=== PATIENT | male | born 2005 | race African-American/Black ===

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

== ENCOUNTER 2024-09-12 12:43 | Emergency (ER) | payer OTHER, SELFPAY ==
--- OUTSIDE RECORDS SUMMARY | 2024-09-12 12:45 | XMS_ITS | Clinical Summary ---
Author Organization [facility] [employer] Address [address] [place] [address] Care Team Providers Care Battery Container Finishing Hand Name Role Phone Massiel Martinez MD Primary Care Provider [phone] Source Comments [facility],non-owned Affiliates and Associated Physician Practices is amultiple site organization consisting of ambulatory clinics and hospital sitesin [place], [place], [place] and [place]. This disclosure is being madepursuant to the Care Everywhere program and may not contain all information available regarding this patient. Last updated 18.[facility] [employer] Allergies Active Allergy Reactions Criticality Noted Date Comments Cephalexin Medium 07/07/2011 hives Medications * This document contains information received from the source organization and may not represent a complete record from that organization. * Be aware that medications may not be up to date on this document. Alwaysverify current medications with the patient. ARIPiprazole (ABILIFY) 10 MG tabletIndicatio ns:Mixed Bipolar Affective Disorder Take 1 (one) tablet by mouth once daily Reasons: MIXED BIPOLAR AFFECTIVE DISORDER 30 tablet 1 Active Additional Information Patient not taking.Reported on 02/23/2021 Active Problems Problem Noted Date Diagnosed Date Severe mood dysregulation disorder 10/14/2020 Ingestion of unknown medication 10/14/2020 Overdose by acetaminophen, i ntentional self-harm, initial encounter 10/13/2020 DMDD (disruptive mood dysregulation disorder) Acute stress reaction 11/07/2018 MDD (major depressive disord er), recurrent episode, moderate 07/27/2018 Episode of recurrent major depressive disorder 0 05/17/2018 Resolved Problems Problem Noted Date Diagnosed Date Resolved Date Suicidal ideation 2018 05/21/2018 Immunizations Immunization Administration Dates Next Due INFLUENZA VACCINE, QUADR. 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 SPECIALIST Gender Identity Not on file Sexual Orientation Not on file Last Filed Vital Signs Vital Sign Reading Time Taken Comments Blood Pressure 131/93 03/22/2024 8:06 AM OPERATING ROOM SPECIALIST Pulse 95 03/22/2024 8:06 AM OPERATING ROOM SPECIALIST Temperature 37.1 C (98.7 F) 03/22/2024 5:25 AM OPERATING ROOM SPECIALIST Respiratory Rate 22 03/22/2024 8:06 AM OPERATING ROOM SPECIALIST Oxygen Saturation 99% 03/22/2024 5:25 AM OPERATING ROOM SPECIALIST Inhaled Oxygen Concentration - - Weight 99.8 kg (220 lb) 03/22/2024 5:25 AM OPERATING ROOM SPECIALIST Height 177.8 cm (5' 10 ) 03/22/2024 5:25 AM OPERATING ROOM SPECIALIST Body Mass Index 31.57 03/22/2024 5:25 AM OPERATING ROOM SPECIALIST Plan of Treatment Health Maintenance Due Date Last Done Comments HIV SCREENING 2019 HPV VACCINE (1 - Male 3-dose series) 2019 MENINGOCOCCAL (Group B) VACCINE SHARED DECISION-MAKING (1 of 2 - Standard) 2020 HEPATITIS C SCREENING 05/14/2022 DTAP/TDAP/TD VACCINES (1 - Tdap) 2023 HEPATITIS B VACCINE (1 of 3 - 19+ 3-dose series) 2023 COVID-19 VACCINE (3 - 2023-2 5 season) 2024 09/06/2020, 08/16/2020 DEPRESSION SCREENING 05/07/2024 INFLUENZA VACCINE (Season Ended) 2025 02/24/2021, 02/06/2018, 01/24/2017 ZOSTER VACCINE (1 of 2) 2054 HIB VACCINE Aged Out No longer eligi ble based on patient's age to complete this topic MENINGOCOCCAL GROUPS A/C/Y/W VACCINE Aged Out No longer eligible b ased on patient's age to complete this topic PNEUMOCOCCAL VACCINE Aged Out No long er eligible based on patient's age to complete this topic Insurance [facility] Advance Directives * Full Code (Latest Code Status on File) Date Activated Date Inactivated Comments 02/22/2021 11:38 PM 02/24/2021 8:35 PM * Full Code Date Activated Date Inactivated Comments 10/14/2020 5:20 AM 10/18/2020 9:03 PM * Full Code Date Activated Date Inactivated Comments 05/17/2018 3:15 AM 05/21/2018 6:04 PM Care Teams Battery Container Finishing Hand Relationship Specialty Start Date End Date Massiel Martinez MD PCP - General Pediatrics 08/09/18
--- OUTSIDE RECORDS SUMMARY | 2024-09-12 12:45 | XMS_ITS | Clinical Summary ---
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 20 tablet 03/03/20 23 Active albuterol HFA (PROVENTIL HFA,VENTOLIN HFA,PROAIR HFA) 90 mcg/actuation inhaler Inhale 2 puffs every 4 (four) hours as needed for shortness of breath or wheezing 1 each 08/22/19 25 026 Active albuterol (PROVENTIL,ARTHUR TOLIN) 2.5 mg /3 mL (0.083 %) nebulizer solution Take 2.5 mg by nebulization every 4 (four) hours as needed for wheezing or shortness of breath 025 Discontinued Active Problems Problem Noted Date Diagnosed Date Other chest pain 07/08/2020 Premature ventricular contractions (PVCs) (VPCs) 06/30/2020 Closed fracture of lower end of right ulna 07/09 Snoring Excessive daytime sleepiness Encounters Date Type Department Care Team Description 08/21/2024 3:31 AM CDT - 08/21/2024 7:56 AM CDT Emergency [facility] Emergency Department [address] [place] [address] Luis Armando Greco MD Chest pain, unspecified type (Primary Dx); Shortness of breath; Acute left-sided low back pain without sciatica Discharge Disposition: Discharge to home or self care from Last 3 Months Medical History Medical History Date Comments Asthma Social History Tobacco Use Types Packs/Day Years Used Date Smoking Tobacco: Never Smokeless Tobacco: Never Alcohol Use Standard Drinks/Week Comments Never 0 (1 standard drink = 0.6 oz pur e alcohol) Personal Safety Answer Date Recorded Have you ever been in or are you currently in a harmful physical or emotional relationship or is someone making you feel afraid or unsafe? 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 OPERATOR Sexual Orientation Not on file Obstetrics History Last Filed Vital Signs Vital Sign Reading Time Taken Comments Blood Pressure 128/63 08/21/2024 7:00 AM CDT Pulse 55 08/21/2024 7:00 AM CDT Temperature 36.7 C (98 F) 08/21/2024 1:38 AM CDT Respiratory Rate 9 08/21/2024 7:00 AM CDT Oxygen Saturation 100% 08/21/2024 7:00 AM CDT Inhaled Oxygen Concentration - - Weight 99.8 kg (220 lb) 08/21/2024 1:38 AM CDT Height 172.7 cm (5' 8 ) 08/21/2024 1:38 AM CDT Body Mass Index 33.45 08/21/2024 1:38 AM CDT Plan of Treatment Health Maintenance Due Date Last Done Comments Depression Screening 2004 Hepatitis C Screening 2004 Meningococcal B Vaccine (1 of 2 - Standard) 2020 Regular Well Visit/Exam 18-64 2022 Covid-19 Vaccine ( season) 2024 09/06/2020, 08/16/2020 Influenza Vaccine (Season Ended) 2025 02/24/2021, 02/06/2018, 01/24/2017, Additional history exists DTaP/Tdap/Td Vaccine (7 - Td or Tdap) 11/16/2025 11/17/2015, 05/21/2008, 07/25/2006, Additional history exists Hepatitis B Screening Completed 2004 , 2004, 2004, Additional history exists Pneumococcal vaccine <65 Completed 006, 2004, 2004, Additional history exists Varicella Vaccines Completed 05/21/2008, 05/19/2005 Meningococcal Vaccine Aged Out 11/17/2015 No theodore fiona eligible based on patient's age to complete this topic HPV Vaccines Completed 05/30/2016, 01/05, 11/17/2015 Procedures Procedure Name Priority Date/Time Associated Diagnosis Comments XR CHEST PA LATERAL 2 VIEWS ED 08/21/2024 2:15 AM CDT EGFR STAT 08/21/2024 1:58 AM CDT DIFFERENTIAL AUTO STAT 08/21/2024 1:5 8 AM CDT COMPREHENSIVE METABOLIC PANEL STAT 08/21/2024 1:58 AM CDT CBC WITH AUTO DIFFERENTIAL STAT 08/21/2024 1:58 AM CDT ECG 12-LEAD STAT 08/21/2024 1:50 AM CDT from Last 3 Months Results * XR Chest PA Lateral 2 Views (08/21/2024 2:15 AM CDT) Anatomical Region Laterality Modality Body, Chest N/A Computed Radiogr aphy 08/21/2024 2:19 AM CDT Narrative 08/21/2024 2:19 AM CDT EXAM DESCRIPTION: XR CHEST PA LATERAL 2 VIEWS REASON FOR STUDY: chest pain C/o SOB and Left mid to lower back pain and chest pain Tonight. Pt states this has been going on and off for about 1 Month. Pt states the breathing has been having issues on and off for past 2 weeks. Asthma TECHNIQUE: Frontal and lateral radiographic views of the chest acquired. COMPARISON: None. FINDINGS: LUNGS/PLEURA: No focal consolidation or pneumothorax. No pleural effusion. HEART/MEDIASTINUM: Cardiac silhouette is normal. Remaining mediastinal silhouettes are unremarkable. HARDWARE/LINES/TUBES: None. BONES: No acute findings. IMPRESSION: No acute cardiopulmonary abnormality. THIS IS AN ELECTRONICALLY VERIFIED FINAL REPORT 08/21/2024 2:19 AM - Electronically signed by Tonia Sullivan M.D. SN: SN Report ID: [id number] Reading Location: [id number] Procedure Note Tonia Sullivan MD - 08/21/2024 EXAM DESCRIPTION: XR CHEST PA LATERAL 2 VIEWS REASON FOR STUDY: chest pain C/o SOB and Left mid to lower back pain and chest pain Tonight. Pt states this has been going on and off for about 1 Month. Pt states thebreathing has been having issues on and off for past 2 weeks. Asthma TECHNIQUE: Frontal and lateral radiographic views of the chest acquired. COMPARISON: None. FINDINGS: LUNGS/PLEURA: No focal consolidation or pneumothorax. No pleuraleffusion. HEART/MEDIASTINUM: Cardiac silhouette is normal. Remaining mediastinal silhouettes are unremarkable. HARDWARE/LINES/TUBES: None. BONES: No acute findings. IMPRESSION: No acute cardiopulmonary abnormality. THIS IS AN ELECTRONICALLY VERIFIED FINAL REPORT 08/21/2024 2:19 AM - Electronically signed by Tonia Sullivan M.D. SN: Report ID: [id number] Reading Location: [id number] us Luis Armando Greco MD IMG XR PROCEDURES F inal Result * eGFR (08/21/2024 1:58 AM CDT) eGFR 85 >=60 mL/min/1. 73 m2 Comment: Interpretive Data Reference Interval Normal >/= 90 mL/min/1.73m2 Mildly decreased* 60 - 89 mL/min/1.73m2 Mildly to moderately decreased 45 - 59 mL/min/1.73m2 Moderately to severely decreased 30 - 44 mL/min/1.73m2 Severely decreased 15 - 29 mL/min/1.73m2 Kidney Failure < 15 mL/min/1.73m2 *Relative to young adult level Estimated glomerular filtration rate is determined by the 2020 CKD-EPI equation recommended by the National Kidney Foundation (A Unifying Approach to GFR Estimation: Recommendations of the NKF-ASK Task Force on Reassessing the Inclusion of Race in Diagnosing Kidney Disease, JASN 2020). The CKD-EPI equation should not be used for patients with unstable renal function and has not been validated in children and those over 70. Current interpretive data was last reviewed 2021. Blood 08/21/2024 1:58 AM CDT 08/21/2024 2:04 AM CDT us Luis Armando Greco MD LAB BLOOD ORDERABLE S Final Result [facility] ([facility]) 1 [facility] Department [place] [address] * Differential, auto (08/21/2024 1:58 AM CDT) Neutrophil abs 4.38 1.50 - 6.50 K/cumm Imm gran abs 0.02 0.00 - 0.10 K/cumm [facility] ([place]) Lymphocyte abs 2.27 0.80 - 3.30 K/cumm [facility] ([place]) Monocyte abs 0.70 0.20 - 0.80 K/cumm [facility] ([place]) Eosinophil abs 0.23 0.00 - 0.50 K/cumm [facility] ([place]) Basophil abs 0.02 0.00 - 0.10 K/cumm [facility] ([place]) Neutrophil pct 57.4 % [facility] ([place]) Comment: Interpretive Data Percent cell count reference ranges are not reported, since discordance with absolute values may lead to misinterpretation of CBC data. Current Interpretive Data was last revised on 2017. Imm gran pct 0.3 % [facility] ([place]) Comment: Interpretive Data Percent cell count reference ranges are not reported, since discordance with absolute values may lead to misinterpretation of CBC data. Current Interpretive Data was last revised on 2017. Lymphocyte pct 29.8 % [facility] ([place]) Comment: Interpretive Data Percent cell count reference ranges are not reported, since discordance with absolute values may lead to misinterpretation of CBC data. Current Interpretive Data was last revised on 2017. Monocyte pct 9.2 % [facility] ([place]) Comment: Interpretive Data Percent cell count reference ranges are not reported, since discordance with absolute values may lead to misinterpretation of CBC data. Current Interpretive Data was last revised on 2017. Eosinophil pct 3.0 % [facility] ([place]) Comment: Interpretive Data Percent cell count reference ranges are not reported, since discordance with absolute values may lead to misinterpretation of CBC data. Current Interpretive Data was last revised on 2017. Basophil pct 0.3 % [facility] ([place]) Comment: Interpretive Data Percent cell count reference ranges are not reported, since discordance with absolute values may lead to misinterpretation of CBC data. Current Interpretive Data was last revised on 2017. Blood 08/21/2024 1:58 AM CDT 08/21/2024 2:04 AM CDT us Luis Armando Greco MD LAB BLOOD ORDERABLE S Final Result [facility] ([place] 1 [facility] Department [place] [address] * CBC with auto differential (08/21/2024 1:58 AM CDT) WBC 7.62 3.80 - 9.90 K/cumm Hgb 15.2 13.0 - 17.5 g/dL [facility] ([place]) Hct 44.2 38.9 - 50.3 % [facility] ([place]) Plt 219 150 - 400 K/cumm [facility] ([place]) MPV 10.3 9.1 - 12.3 fL [facility] ([place]) RBC 5.34 4.30 - 5.80 M/cumm [facility] ([place]) MCV 82.8 81.3 - 96.4 fL [facility] ([place]) MCH 28.5 27.1 - 33.3 pg [facility] ([place]) MCHC 34.4 32.3 - 35.7 g/dL [facility] ([place]) RDW CV 12.5 11.1 - 14.9 % [facility] ([place]) RDW SD 37.5 35.7 - 48.1 fL [facility] ([place]) NRBC abs 0.00 0.00 - 0.01 K/cumm [facility] ([place]) Blood Venous blood specimen / Unknown 08/21/2024 1:58 AM CDT 08/21/2024 2:04 AM CDT us Luis Armando Greco MD LAB BLOOD ORDERABLE S Final Result [facility] ([facility]) 1 [facility] Department [place] [address] * Comprehensive metabolic panel (08/21/2024 1:58 AM CDT) Sodium 139 135 - 145 mmol/L Potassium, pl 3.9 3.3 - 4.9 mmol/L [facility] ([place]) Chloride 104 97 - 110 mmol/L [facility] ([place]) CO2 23 22 - 32 mmol/L [facility] ([place]) Anion gap 12 2 - 15 mmol/L [facility] ([place]) BUN 14 6 - 25 mg/dL [facility] ([place]) Creatinine 1.25 0.80 - 1.30 mg/dL [facility] ([place]) Glucose 100 70 - 199 mg/dL [facility] ([place]) Comment: Interpretive Data Fasting glucose >/= 126 mg/dl is diagnostic for diabetes. Fasting is defined as no caloric intake for at least 8 hours. Fasting glucose between 100 mg/dl to 125 mg/dl is diagnostic of prediabetes. In a patient with classic symptoms of hyperglycemia or hyperglycemic crisis, a random glucose >/= 200 mg/dl is diagnostic for diabetes. In the absence of unequivocal hyperglycemia, results should be confirmed by repeat testing. The classification and Diagnosis of Diabetes Diabetes Care 2021; 46: S19-S40. Current interpretive data was last revised 2022. Calcium 9.4 8.5 - 10.3 mg/dL [facility] Bilirubin, total 0.3 0.1 - 1.2 mg/dL [facility] ([place]) Protein, pl 7.5 6.5 - 8.5 g/dL [facility] ([place]) Albumin 4.4 3.5 - 5.0 g/dL [facility] ([place]) Alk phos 60 40 - 130 Units/L [facility] ([place]) ALT 14 7 - 55 Units/L [facility] ([place]) AST 18 10 - 50 Units/L [facility] ([place]) Blood 08/21/2024 1:58 AM CDT 08/21/2024 2:04 AM CDT us Luis Armando Greco MD LAB BLOOD ORDERABLE S Final Result Performing Organization Address City/[facility] Co de Phone Number [facility] ([place]) [address] [place] [address] [place] [address] * ECG 12 lead (08/21/2024 1:50 AM CDT) 08/21/2024 1:50 AM CDT Narrative [facility] - 08/21/2024 2:05 PM CDT Vent Rate: 79 bpm RR Interval: 754 msec OR Interval: 166 msec QRS Duration: 103 msec QT Interval: 360 msec QTC Interval: 395 msec P-R-T [place]: 67 - 24 - 47 degrees IMPRESSION: SINUS RHYTHM NONSPECIFIC IVCD NORMAL ECG Electronically Signed By: Frank Castrejon MD us Luis Armando Greco MD ECG ORDERABLES Fin al Result Performing Organization Address City/[facility] Co de Phone Number [facility] [employer] [facility] from Last 3 Months Insurance [facility] [employer] [facility] CHOICE PLUS CHOICE PLUS Member Subscriber Plan / Payer (Ef fective 2021-Present) Name:[employer] Relation to Subscriber:Child Name:HECTOR FANG Date of :1982 Address: [address] [place] [address] Payer ID:[id number] (NAIC) Type:[facility] HMO/PPO Address: [address] [employer] [facility] [employer] [facility] CHOICE PLUS [facility] [employer] Member Subscriber Plan / Payer (Ef fective 2011-Present) Name:Wesley Fang Relation to Subscriber:Self Name:LeoncioSiomaraWesley Fab Payer ID:[id number] (NAIC) Group ID:Not on file Type:HOME STATE Address: [address] [place] [phone] [facility] [employer] Care Teams Hydraulic Bull Riveter Operator Relationship Specialty Start Date End Date Madhu Dean MD [address] [place] [address] PCP - General Internal Medicine 08/21/24
--- OUTSIDE RECORDS SUMMARY | 2024-09-12 12:45 | XMS_ITS | Encounter Summary ---
Author Organization [facility] Address [address] [place] [address] Phone Care Team Providers Care Plant Breeder Scientist Name Role Phone Jerica Joseph DO Primary Care Provider + Massiel Martinez MD Primary Care Provider [phone] Madhu Dean MD Primary Care Provider [phone] Encounter Details Date Type Department Care Team (Late st Contact Info) Description 06/19/2017 Orders Only [facility] ProviderRolo MD [address] [place] [id number] Social History Tobacco Use Types Packs/Day Years Used Date Smoking Tobacco: Never Assessed Sex and Gender Information Value Date Recorded Sex Assigned at Not on file 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 Historical Provider LAB BLOOD ORDERABLES Bridget l Result documented in this encounter Visit Diagnoses Not on filedocumented in this encounter Additional Health Concerns Infection Onset Date Last Indicated Resolved Time COVID: Suspected 07/01/2021 07/01/2021 07/01/2021 6:32 PM ADOBE ARCHITECT documented as of this encounter Care Teams Plant Breeder Scientist Relationship Specialty Start Date End Date Jerica Joseph DO PCP - General 06/19/17 07/09/17 Massiel Martinez MD [address] [address] PCP - General 07/10/17 07/10/17 Madhu Dean MD [address] [place] [address] [place] [address] PCP - General Internal Medicine 08/21/24 documented as of this encounter
--- OUTSIDE RECORDS SUMMARY | 2024-09-12 12:45 | XMS_ITS | Clinical Summary ---
Author Organization [facility] Address [address] [place] [address] Phone Care Team Providers Care Bread Icer Name Role Phone Provider, Not On File Primary Care Provider Unav ailable Allergies No known active allergies Medications ondansetron (ZOFRAN) 4 MG Tablet Take 1-2 Tablets by mouth every 8 hours as needed for Nausea - 1st line. 10 Tablet 08/05/2024 Active Encounters Date Type Department Care Team Description 08/05/2024 8:41 AM CDT - 08/05/2024 10:36 AM CDT Emergency [facility] Emergency [address] [place] [address] Jaleel English MD Shortness of breath Discharge Disposition: Discharged to home or Selfcare 08/05/2024 Travel from Last 3 Months Social History Tobacco Use Types Packs/Day Years Used Date Smoking Tobacco: Never Assessed Sex and Gender Information Value Date Recorded Sex Assigned at Not on file Legal Sex Male 8:40 AM CDT Gender Identity Not on file Sexual Orientation Not on file Last Filed Vital Signs Vital Sign Reading Time Taken Comments Blood Pressure 121/66 08/05/2024 10:35 AM CDT Pulse 100 08/05/2024 8:47 AM CDT Temperature 35.6 C (96.1 F) 08/05/2024 8:47 AM CDT Respiratory Rate 20 08/05/2024 8:47 AM CDT Oxygen Saturation 97% 08/05/2024 8:47 AM CDT Inhaled Oxygen Concentration - - Weight 99.3 kg (219 lb) 08/05/2024 8:47 AM CDT Height 175.3 cm (5' 9 ) 08/05/2024 8:47 AM CDT Body Mass Index 32.34 08/05/2024 8:47 AM CDT Plan of Treatment Health Maintenance Due Date Last Done Comments Hepatitis C Virus (HCV) Screening 2004 Meningococcal B Immunization (1 of 2 - Standard) 2020 SARS-COV-2 Immunization ( season) 2024 Influenza Immunization (Season Ended) 2025 02/24/2021, 01/20/2016, 04/06/2015, Additional history exists Respiratory Syncytial Virus (RSV) Immunization (Adult) (1 - 1-dose 75+ series) 2079 Hepatitis B Immunization Completed 005, 2004, 2004, Additional history exists Pneumococcal Immunization Combined Aged Out 08/03/2005, 2004, 2004, Additional history exists No longer eligible based on patient's age to complete this topic Meningococcal Immunization (ACWY) Aged Out 11/17/2015 No longer eligible based on patient's age to complete this topic TdaP Immunization Completed 11/17/2015 Human Papillomavirus (HPV) Immunization Completed 05/30/2016, 01/20/2016, 11/17/2015 Rotavirus Immunization Aged Out No lo nger eligible based on patient's age to complete this topic Procedures Procedure Name Priority Date/Time Associated Diagnosis Comments XR CHEST SINGLE VIEW PORTABLE STAT 08/05/2024 9:57 AM CDT URINALYSIS REFLEX IF INDICATED BY ABNORMAL RESULTS STAT 08/05/2024 9:[address] RENAL STONE STUDY (ABDOMEN AND PELVIS W/O CONTRAST) Stat with Interpretation 08/05/2024 9:07 AM CDT GOLD TOP TUBE STAT 08/05/2024 8:58 AM CDT BLUE TOP TUBE STAT 08/05/2024 8:58 AM CDT CBC WITH AUTO DIFFERENTIAL STAT 08/05/2024 8:58 AM CDT EXTRA TUBES STAT 08/05/2024 8:58 AM CDT LIPASE STAT 08/05/2024 8:58 AM CDT CMP (COMPREHENSIVE METABOLIC PANEL) STAT 08/05/2024 8:58 AM CDT COMPLETE BLOOD COUNT (CBC) WITH DIFF STAT 08/05/2024 8:58 AM CDT RSV,SARS-COV-2,INF LUENZA A&B BY PCR STAT 08/05/2024 8:55 AM CDT from Last 3 Months Results * XR CHEST SINGLE VIEW PORTABLE (08/05/2024 9:57 AM CDT) Anatomical Region Laterality Modality Chest N/A Digital Radiogra phy 08/05/2024 10:3 8 AM CDT Impressions 08/05/2024 10:41 AM CDT IMPRESSION: No acute cardiopulmonary findings. Narrative 08/05/2024 10:41 AM CDT EXAM DESCRIPTION: XR CHEST SINGLE VIEW PORTABLE REASON FOR STUDY: SOB, vomiting on ad off x 1 month. Hx. Asthma, smoker TECHNIQUE: 1 radiographic view(s) of the chest. COMPARISON: None available FINDINGS: LUNGS: No pneumonic consolidation or pulmonary edema is seen. Minimal linear atelectasis or scarring in the left lung base and right lower lung. No pleural effusion or pneumothorax identified. HEART/MEDIASTINUM: Cardiomediastinal contours and heart size are normal. LINES/TUBES: None. BONES: No acute displaced fracture or aggressive bone lesion is seen. THIS IS AN ELECTRONICALLY VERIFIED FINAL REPORT 08/05/2024 10:38 AM - Electronically signed by Jef Russell M.D. MZ: BHAVNA Report ID: [id number] Reading Location: [id number] Procedure Note Jef Russell MD - 08/05/2024 EXAM DESCRIPTION: XR CHEST SINGLE VIEW PORTABLE REASON FOR STUDY: SOB, vomiting on ad off x 1 month. Hx. Asthma, smoker TECHNIQUE: 1 radiographic view(s) of the chest. COMPARISON: None available FINDINGS: LUNGS: No pneumonic consolidation or pulmonary edema is seen. Minimal linear atelectasis or scarring in the left lung base and right lower lung. No pleural effusion or pneumothorax identified. HEART/MEDIASTINUM: Cardiomediastinal contours and heart size are normal. LINES/TUBES: None. BONES: No acute displaced fracture or aggressive bone lesion is seen. THIS IS AN ELECTRONICALLY VERIFIED FINAL REPORT 08/05/2024 10:38 AM - Electronically signed by Jef Russell M.D. MZ: MZ Report ID: [id number] Reading Location: [place] [address] IMPRESSION: No acute cardiopulmonary findings. Jaleel English MD IM DIAGNOSTIC ORDERABLES Final Result * (ABNORMAL) Urinalysis w/ Reflex (08/05/2024 9:14 AM CDT) SPECIFIC GRAVITY 1.025 1.003 - 1.030 08/05/2024 9:45 AM CDT [facility] URINE PH 6.0 5.0 - 9.0 08/05/2024 9:45 AM CDT [facility] WBC ESTERASE Negative Negative 08/05/2024 9:45 AM CDT [facility] NITRITE Negative Negative 08/05/2024 9:45 AM CDT [facility] PROTEIN, RANDOM URINE 30 mg/dL(A) Negative 08/05/2024 9:45 AM CDT [facility] URINE GLUCOSE, QUAL Negative Negative 08/05/2024 9:45 AM CDT [facility] URINE KETONES Negative Negative 08/05/2024 9:45 AM CDT [facility] UROBILINOGEN Normal Normal mg/dL 08/05/2024 9:45 AM CDT [facility] URINE BLOOD Negative Negative sadaf/ul 08/05/2024 9:45 AM CDT [facility] URINALYSIS COLOR Yellow 08/06/19 9:45 AM CDT [facility] URINALYSIS CLARITY Clear 08/05/2024 9:45 AM CDT [facility] WBC (Urine) Negative Negative, 0-5 /hpf 08/05/2024 9:45 AM CDT [facility] URINE RBC'S Negative Negative, 0-2 /hpf 08/05/2024 9:45 AM CDT [facility] EPITHELIAL CELLS Occasional /lpf 08/06/19 9:45 AM CDT [facility] BACTERIA, URINE Negative Negative /hpf 08/05/2024 9:45 AM CDT [facility] Urine URINE SPECIMEN / Unknown Non-Phlebotomy Collection / Unknown 08/05/2024 9:14 AM CDT 08/05/2024 9:22 AM CDT us Jaleel English MD URINE ORDERABLES Final Re sult [facility] LAB [address] [place] [address] * CT RENAL STONE STUDY (ABDOMEN AND PELVIS W/O CONTRAST) (08/05/2024 9:07 AM CDT) Anatomical Region Laterality Modality Abdomen N/A Computed Tomogra phy 08/05/2024 9:26 AM CDT Impressions 08/05/2024 9:28 AM CDT IMPRESSION: No abnormality to explain the patient's symptoms. No urolithiasis or hydronephrosis. Narrative 08/05/2024 9:28 AM CDT EXAM DESCRIPTION: CT RENAL STONE STUDY (ABDOMEN AND PELVIS W/O CONTRAST) REASON FOR STUDY: Generalized low back pain and bilateral flank pain with nausea and shortness of breath for 1 month. TECHNIQUE: CT scan of the abdomen and pelvis performed without intravenous and without oral contrast using helical scanning technique. Reconstructed coronal and sagittal MPR images reviewed. All images stored on PACS. Automated exposure control was used as a dose optimization technique for this examination. COMPARISON: None FINDINGS: The sensitivity for detection of visceral lesions is diminished without the use of intravenous contrast. LOWER CHEST: No significant pulmonary abnormalities. No pleural effusion. LIVER: No focal liver lesion. GALLBLADDER: No calcified gallstones. BILE DUCTS: No intrahepatic or extrahepatic ductal dilatation. SPLEEN: Normal size. No focal lesions. PANCREAS: No masses. No adjacent inflammation or peripancreatic fluid collections. No pancreatic ductal dilatation. ADRENALS: Normal. KIDNEYS/URINARY TRACT: No identified significant cystic or solid masses. No stones. No hydronephrosis or hydroureter. Urinary bladder is unremarkable. GI: No dilated bowel loops. No obvious wall thickening. Normal appendix. No significant diverticular disease. PERITONEUM: No ascites or free air. RETROPERITONEUM: No mass or lymphadenopathy. REPRODUCTIVE: No significant abnormality. VASCULATURE: No abdominal aortic aneurysm. MUSCULOSKELETAL: No significant abnormality. OTHER: Tiny fat containing umbilical hernia. THIS IS AN ELECTRONICALLY VERIFIED FINAL REPORT 08/05/2024 9:26 AM - Electronically signed by Luis Mustafa M.D. LB: ADAN Report ID: [id number] Reading Location: [id number] Procedure Note Luis Mustafa MD - 08/05/2024 EXAM DESCRIPTION: CT RENAL STONE STUDY (ABDOMEN AND PELVIS W/O CONTRAST) REASON FOR STUDY: Generalized low back pain and bilateral flank pain with nausea and shortness of breath for 1 month. TECHNIQUE: CT scan of the abdomen and pelvis performed without intravenous and without oral contrast using helical scanning technique. Reconstructed coronal and sagittal MPR images reviewed. All images stored on PACS. Automated exposure control was used as a dose optimization technique for this examination. COMPARISON: None FINDINGS: The sensitivity for detection of visceral lesions is diminished without the use of intravenous contrast. LOWER CHEST: No significant pulmonary abnormalities. No pleural effusion. LIVER: No focal liver lesion. GALLBLADDER: No calcified gallstones. BILE DUCTS: No intrahepatic or extrahepatic ductal dilatation. SPLEEN: Normal size. No focal lesions. PANCREAS: No masses. No adjacent inflammation or peripancreatic fluid collections. No pancreatic ductal dilatation. ADRENALS: Normal. KIDNEYS/URINARY TRACT: No identified significant cystic or solid masses. No stones. No hydronephrosis or hydroureter. Urinary bladder is unremarkable. GI: No dilated bowel loops. No obvious wall thickening. Normal appendix. No significant diverticular disease. PERITONEUM: No ascites or free air. RETROPERITONEUM: No mass or lymphadenopathy. REPRODUCTIVE: No significant abnormality. VASCULATURE: No abdominal aortic aneurysm. MUSCULOSKELETAL: No significant abnormality. OTHER: Tiny fat containing umbilical hernia. THIS IS AN ELECTRONICALLY VERIFIED FINAL REPORT 08/05/2024 9:26 AM - Electronically signed by Luis Mustafa M.D. LB: LB Report ID: [id number] Reading Location: [place] [address] IMPRESSION: No abnormality to explain the patient's symptoms. No urolithiasis or hydronephrosis. us Jaleel English MD IMG CT ORDERABLES Final R esult * Gold Top Tube (08/05/2024 8:58 AM CDT) Blood No Phlebotomy Charged / Unknown 08/05/2024 8:58 AM CDT 08/05/2024 9:21 AM CDT Jaleel English MD CHEMISTRY ORDERABLES Bridget l Result Performing Organization Address City/[facility] Co de Phone Number [facility] [address] [place] [address] * Blue Top Tube (08/05/2024 8:58 AM CDT) Blood No Phlebotomy Charged / Unknown 08/05/2024 8:58 AM CDT 08/05/2024 9:21 AM CDT us Jaleel English MD HEMATOLOGY ORDERABLES Fin al Result Performing Organization Address City/[facility] Co de Phone Number [facility] [address] [place] [address] * (ABNORMAL) CBC with Auto Differential (08/05/2024 8:58 AM CDT) WBC 9.88 4.00 - 12.00 10(3)/[facility] 08/05/2024 9:22 AM CDT [facility] RBC 5.62 4.40 - 5.80 10(6)/[facility] 08/05/2024 9:22 AM CDT [facility] HEMOGLOBIN (HGB) 15.9 13.0 - 16.5 g/dL 08/05/2024 9:22 AM CDT [facility] HEMATOCRIT (HCT) 47.3 38.0 - 50.0 % 08/05/2024 9:22 AM CDT [facility] MCV 84.2 82.0 - 96.0 fL 08/05/2024 9:22 AM CDT [facility] MCH 28.3 26.0 - 32.0 pg 08/05/2024 9:22 AM CDT [facility] MCHC 33.6 31.0 - 36.0 g/dL 08/05/2024 9:22 AM CDT [facility] PLATELET COUNT 202 140 - 440 10(3)/[facility] 08/05/2024 9:22 AM CDT [facility] RDW 12.1 11.8 - 15.5 % 08/05/2024 9:22 AM CDT [facility] MPV 10.6 8.0 - 12.6 fL 08/05/2024 9:22 AM CDT [facility] NEUTROPHILS 81.1(H) 40.0 - 68.0 % 08/05/2024 9:22 AM CDT [facility] LYMPHOCYTES 11.1(L) 19.0 - 49.0 % 08/05/2024 9:22 AM CDT [facility] MONOCYTES 6.2 3.0 - 13.0 % 08/05/2024 9:22 AM CDT [facility] EOSINOPHILS 1.4 0.0 - 8.0 % 08/05/2024 9:22 AM CDT [facility] BASOPHILS 0.2 0.0 - 1.0 % 08/05/2024 9:22 AM CDT [facility] ABSOLUTE NEUTROPHILS 8.01(H) 1.40 - 5.30 10(3)/[facility] 08/05/2024 9:22 AM CDT [facility] ABSOLUTE LYMPHOCYTES 1.10 0.90 - 3.30 10(3)/[facility] 08/05/2024 9:22 AM CDT [facility] ABSOLUTE MONOCYTES 0.61 0.10 - 0.90 10(3)/[facility] 08/05/2024 9:22 AM CDT [facility] ABSOLUTE EOSINOPHIL 0.14 0.00 - 0.50 10(3)/[facility] 08/05/2024 9:22 AM CDT [facility] ABSOLUTE BASOPHILS 0.02 0.00 - 0.10 10(3)/[facility] 08/05/2024 9:22 AM CDT [facility] NRBC PER 100 WBC 0 08/06/19 9:22 AM CDT [facility] Blood Venipuncture / Unknown 08/05/2024 8:58 AM CDT 08/05/2024 9:16 AM CDT us Jaleel English MD HEMATOLOGY ORDERABLES Fin al Result [facility] [address] [place] [address] * Lipase (08/05/2024 8:58 AM CDT) LIPASE 32 8 - 78 U/L 08/05/2024 9:43 AM CDT [facility] Blood Venipuncture / Unknown 08/05/2024 8:58 AM CDT 08/05/2024 9:16 AM CDT Jaleel English MD CHEMISTRY ORDERABLES Bridget l Result [facility] [address] [place] [address] * (ABNORMAL) CMP (08/05/2024 8:58 AM CDT) SODIUM 140 136 - 145 mmol/L 08/05/2024 9:43 AM CDT [facility] POTASSIUM 4.1 3.5 - 5.1 mmol/L 08/05/2024 9:43 AM CDT [facility] CHLORIDE 107 98 - 107 mmol/L 08/05/2024 9:43 AM CDT [facility] CO2, VENOUS 26 22 - 30 mmol/L 08/05/2024 9:43 AM CDT [facility] ANION GAP 11.1 <18.0 mmol/L 08/05/2024 9:43 AM CDT [facility] GLUCOSE 90 70 - 99 mg/dL 08/05/2024 9:43 AM CDT [facility] BUN 16 9 - 21 mg/dL 08/05/2024 9:43 AM CDT [facility] CREATININE, BLOOD 1.12 0.70 - 1.30 mg/dL 08/05/2024 9:43 AM CDT [facility] BUN/CREATININE RATIO 14 12 - 20 ratio 08/05/2024 9:43 AM CDT [facility] TOTAL PROTEIN 8.2(H) 6.0 - 8.0 g/dL 08/05/2024 9:43 AM CDT [facility] ALBUMIN 4.3 3.5 - 5.0 g/dL 08/05/2024 9:43 AM CDT [facility] A/G RATIO 1.1 1.0 - 2.2 08/05/2024 9:43 AM CDT [facility] CALCIUM 9.2 8.7 - 10.5 mg/dL 08/05/2024 9:43 AM CDT [facility] T BILI 0.7 0.2 - 1.2 mg/dL 08/05/2024 9:43 AM CDT [facility] SGOT (AST) 21 <43 U/L 08/05/2024 9:43 AM CDT [facility] SGPT (ALT) 14 <56 U/L 08/05/2024 9:43 AM CDT [facility] ALKALINE PHOSPHATASE 53 40 - 150 U/L 08/05/2024 9:43 AM CDT [facility] GFR, ESTIMATED >60 >=60 08/05/2024 9:43 AM CDT [facility] Comment: Creatinine Clearance is the preferred criteria for selecting drug dose adjustments in renally impaired patients. The GFR is provided as additional pertinent clinical information. GFR is reported in mL/min/1.73 sq m. Calculation based on the Chronic Kidney Disease Epidemiology Collaboration (CKD- EPI) equation refit without adjustment for race. GFR, EST. >60 >=60 025 9:43 AM CDT [facility] GFR, EST. NONAFRICAN >60 >=60 08/05/2024 9:43 AM CDT [facility] Blood Venipuncture / Unknown 08/05/2024 8:58 AM CDT 08/05/2024 9:16 AM CDT us Jaleel English MD CHEMISTRY ORDERABLES Bridget l Result [facility] [address] [place] [address] * JERRELL-COV-2 Flu RSV - (Quad PCR) (08/05/2024 8:55 AM CDT) FLU A Negative Negative, Error 08/05/2024 10:00 AM CDT [facility] FLU B Negative Negative 08/05/2024 10:00 AM CDT [facility] RESP SYNC VIRUS Negative Negative 10:00 AM CDT [facility] SARSCOV2 NOT DETECTED (Reference Range for this test is Not Detected) 08/05/2024 10:00 AM CDT [facility] Comment:This test was perfor med by a Reverse Receiving Distribution Station Operator PCR Method. Swab NASOPHARYNGEAL SWAB / Unknown Non-Phlebotomy Collection / Unknown 08/05/2024 8:55 AM CDT 08/05/2024 9:16 AM CDT us Jaleel English MD MICROBIOLOGY - GENERAL OR DERABLES Final Result [facility] [address] [place] [address] from Last 3 Months Insurance [facility] Care Teams Bread Icer Relationship Specialty Start Date End Date Provider, Not On File [place] PCP - General 08/05/24
--- OUTSIDE RECORDS SUMMARY | 2024-09-12 12:45 | XMS_ITS | Referral Summary ---
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 Name Role Phone Madhu Dean MD Primary Care Provider [phone] Encounters Date Type Department Care Team Description 08/21/2024 3:31 AM CDT - 08/21/2024 7:56 AM CDT Emergency [facility] Emergency Department [address] [place] [address] Luis Armadno Greco MD Chest pain, unspecified type (Primary Dx); Shortness of breath; Acute left-sided low back pain without sciatica Discharge Disposition: Discharge to home or self care from Last 3 Months Allergies Active Allergy Reactions Criticality Noted Date [...] 1 each 08/22/19 25 026 Active albuterol (PROVENTIL,ARHTUR TOLIN) 2.5 mg /3 mL (0.083 %) nebulizer solution Take 2.5 mg by nebulization every 4 (four) hours as needed for wheezing or shortness of breath 025 Discontinued Active Problems Problem Noted Date Diagnosed Date Other chest pain 07/08/2020 Premature ventricular contractions (PVCs) (VPCs) 06/30/2020 Closed fracture of lower end of right ulna 07/09 Snoring Excessive daytime sleepiness Social History Tobacco Use Types Packs/Day Years [...] on file 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 SN: SN Report ID: [id number] Reading Location: [id number] Procedure Note Tonia Sullivan MD - 08/21/2024 [...] Tonia Sullivan M.D. SN: SN Report ID: [id number] Reading Location: [id number] us Luis Armando Greco MD IMG XR [...] LAB BLOOD ORDERABLE S Final Result [facility] [place] [facility] [place] [address] * Differential, auto (08/21/2024 1:58 AM CDT) Neutrophil abs 4.38 1.50 - 6.50 K/cumm Imm gran abs 0.02 0.00 - 0.10 K/cumm [facility] Lymphocyte abs 2.27 0.80 - 3.30 K/cumm [facility] Monocyte abs 0.70 0.20 - 0.80 K/cumm [facility] ([place]) Eosinophil abs 0.23 0.00 - 0.50 K/cumm [facility] Basophil abs 0.02 0.00 - 0.10 K/cumm [facility] ([place]) Neutrophil pct 57.4 % [facility] ([place] Comment: Interpretive Data Percent cell count reference [...] S Final Result [facility] ([place] 1 [facility] [place] [address] * CBC with auto differential (08/21/2024 1:58 AM CDT) WBC 7.62 3.80 - 9.90 K/cumm Hgb 15.2 13.0 - 17.5 g/dL [facility] Hct 44.2 38.9 - 50.3 % [facility] Plt 219 150 - 400 K/cumm [facility] MPV 10.3 9.1 - 12.3 fL [facility] RBC 5.34 4.30 - 5.80 M/cumm [facility] MCV 82.8 81.3 - 96.4 fL [facility] MCH 28.5 27.1 - 33.3 pg [facility] MCHC 34.4 32.3 - 35.7 g/dL [facility] RDW CV 12.5 11.1 - 14.9 % [facility] RDW SD 37.5 35.7 - 48.1 fL [facility] NRBC abs 0.00 0.00 - 0.01 K/cumm [facility] Blood Venous blood specimen / Unknown 08/21/2024 1:58 AM CDT 08/21/2024 2:04 AM CDT us Luis Armando Greco MD LAB BLOOD ORDERABLE S Final Result [facility] ([place] 1 [facility] [place] [address] * Comprehensive metabolic panel (08/21/2024 1:58 AM CDT) Pathologist [facility] Sodium 139 135 - 145 mmol/L Potassium, pl 3.9 3.3 - 4.9 mmol/L [facility] Chloride 104 97 - 110 mmol/L [facility] CO2 23 22 - 32 mmol/L [facility] Anion gap 12 2 - 15 mmol/L [facility] BUN 14 6 - 25 mg/dL [facility]) Creatinine 1.25 0.80 - 1.30 mg/dL [facility] Glucose 100 70 - 199 mg/dL [facility] Comment: Interpretive Data Fasting glucose >/= [...] LAB BLOOD ORDERABLE S Final Result [facility] ([place] 1 [facility] [place] [address] * ECG 12 lead (08/21/2024 1:50 AM CDT) 08/21/2024 1:50 AM CDT Narrative [facility] - 08/21/2024 2:05 PM CDT Vent Rate: 79 bpm RR Interval: 754 msec ID Interval: 166 msec QRS Duration: 103 msec QT Interval: 360 msec QTC Interval: 395 msec P-R-T [place]: 67 - 24 - 47 degrees IMPRESSION: SINUS RHYTHM NONSPECIFIC IVCD NORMAL ECG Electronically Signed By: Frank Castrejon MD us Luis Armando Greco MD ECG ORDERABLES Fin al Result [facility] from Last 3 Months Insurance [employer] [facility] [employer] H[facility]/PPO Address: [address] [address] [place] [address] [facility] [employer] [facility] H[facility]/PPO Address: [address] [address] [place] [address] [employer] [facility] [employer] H[facility]/PPO Address: [address] [address] [place] [address] [facility] [employer] Care Teams Ropewalk Rope Maker Relationship Specialty Start Date End Date Madhu Dean MD [address] [place] [address] [place] [address] [phone] (work) PCP - General Internal Medicine 08/21/24
--- OUTSIDE RECORDS SUMMARY | 2024-09-12 12:45 | XMS_ITS | CONTINUITY OF CARE DOCUMENT ---
Author Name oanh hugo Address Unknown Organization [facility] Address [address] [place] [address] Phone [phone] Care Team Providers Care Sole Edge Inker Machine Name Role Phone Venkata HERNANDES, Lea Unavailable [phone] SHAYY GRAVITY METER OBSERVER, FRANCOISE Unavailable [phone] SHAYY GRAVITY METER OBSERVER, FRANCOISE Unavailable PROBLEMS Condition Status Date Provider Notes Cardiology examination active Lea patel MD Chest pain active Lea Hastings MD Palpitations active Lea Hastings MD Insomnia active Lea Hastings MD Anxiety/ depression active Lea Cardenas Headaches active Lea Hastings MD Fatigue active Lea Hastings MD ENCOUNTERS Date Type Provider Location Encounter Diag nosis - In-person encounter Office Visit Lea Hastings MD [place] [facility] Cardiology examinationChest painPalpitationsInsomniaAnxiety/ depressionHeadachesFatigue VITAL SIGNS Date Observation Value Provider Body Mass Index (Ratio) 27.25 kg/m2 Mini Lozano blood pressure, diastolic 62 mm[Hg] Wilma nkLogic blood pressure, systolic 127 mm[Hg] Rosalia kLogic blood pressure, resting No Liam titsakina Rosibel blood pressure, diastolic 62 mm[Hg] Tanmay Gleason blood pressure, systolic 127 mm[Hg] Venecia Gleason oxygen saturation, oximetry 98 % [facility] pulse [facility] 91 /min [facility] Rosibel weight E&M 174 [lb_av] [facility] height E&M 67 [in_i] [facility] respiratory rate E&M 20 /min Griselda Gleason ALLERGIES No Known Drug Allergies HISTORY OF MEDICATION USE Medication Status Instructions Dates Provider Indications Com ments hydroxyzine HCl 10 mg tablet active Lea Hastings MD risperidone 0.5 mg tablet active Lea Hastings MD escitalopram oxalate 20 mg tablet active Lea Hastings MD sertraline 100 mg tablet active TAKE 1 TABLET BY MOUTH EVERY DAY AT BEDTIME Lea Hastings MD SOCIAL HISTORY Date Observation Value Provider social history E&M S moking History: Fab miller is a former smoker. Lea Hastings MD social history reviewed E&M revi ewed - no changes required Lea Hastings MD number of years as a smoker 6 a [facility] status Former smoker Megan Platt jero INSURANCE PROVIDERS Payer name Policy type / Coverage type Stroud red libertarian ID [id number] [employer] insurance [employer] [place] [id number] ADVANCE DIRECTIVES Name Date DISCUSSED - NO DECISION MADE TREATMENT PLAN Date Name Performer [id number],C, S truggles to sleep at night, frequently wakes up, and is tired during the day. Will scheduel him a home sleep study Dayan Marta [id number],C, P t complaining of intermittent chest pain, exacerbated by exercise. Associated with palpitations and fast heart rate. We will check a one week telemonitor to assess for arrhythmias. Had echo done last year which was unremarkable, so we will not repeat one at this time. Dayan Lozano [id number],C, S truggles to sleep at night, frequently wakes up, and is tired during the day. Will scheduel him a home sleep study Dayan Lozano [id number],C, F noah with psychiatrist. Has had episodes of suicidal ideation in the past. On medications Dayan Guerinwinnie [id number],C, F noah with psychiatrist. Has had episodes of suicidal ideation in the past. Lea Hastings MD Cardiology: S truggles to sleep at night, frequently wakes up, and is tired during the day. Will scheduel him a home sleep study [facility] Card[facility]: P t complaining of intermittent chest pain, exacerbated by exercise. Associated with palpitations and fast heart rate. We will check a one week telemonitor to assess for arrhythmias. Had echo done last year which was unremarkable, so we will not repeat one at this time. Dayan Guerinwinnie Cardiology: S truggles to sleep at night, frequently wakes up, and is tired during the day. Will scheduel him a home sleep study Dayan Guerinwinnie Cardiology: F noah with psychiatrist. Has had episodes of suicidal ideation in the past. On medications Dayan Guerinwinnie Cardiology: Rishabh zamora with psychiatrist. Has had episodes of suicidal ideation in the past. Lea Hastings MD Date Name Sleep Study Home Monitor - Telemetry (Mobile Cardiac) HISTORY OF PROCEDURES Procedure Date Procedure Name Provider Procedure Notes S tatus EKG Lea Hastings MD complet ed
[2024-09-12 12:49] VITALS: BP 145/72; PULSE 72; RESP 16; TEMP 36.4; O2SAT 98
--- OUTSIDE RECORDS SUMMARY | 2024-09-12 14:21 | XMS_ITS | Encounter Summary ---
Author Organization [facility] Address [address] [place] [address] Phone Care Team Providers Care Power Operator Name Role Phone Jerica Joseph DO Primary Care Provider + Massiel Martinez MD Primary Care Provider [phone] Madhu Dean MD Primary Care Provider [phone] Encounter Details Date Type Department Care Team (Late st Contact Info) Description 06/19/2017 Orders Only [facility] ProviderRolo MD [address] [place] [address] Social History Tobacco Use Types Packs/Day Years Used Date Smoking Tobacco: Never Assessed Sex and Gender Information Value Date Recorded Sex Assigned at Not on file Legal Sex Male 7:16 PM GETTER OPERATOR Gender Identity Male 07/01/2020 7:06 AM GETTER OPERATOR Sexual Orientation Not on file documented as of this encounter Plan of Treatment Not on file documented as of this encounter Procedures Procedure Name Priority Date/Time Associated Diagnosis Comments DISCHARGE LABORATORY CUMULATIVE REPORT 06/19/2017 12:00 AM GETTER OPERATOR documented in this encounter Results * DISCHARGE LABORATORY CUMULATIVE REPORT (06/19/2017 12:00 AM GETTER OPERATOR) Narrative 06/19/2017 12:00 AM GETTER OPERATOR Ordered by an unspecified provider. Historical Provider LAB BLOOD ORDERABLES Bridget l Result documented in this encounter Visit Diagnoses Not on filedocumented in this encounter Additional Health Concerns Infection Onset Date Last Indicated Resolved Time COVID: Suspected 07/01/2021 07/01/2021 07/01/2021 6:32 PM GETTER OPERATOR documented as of this encounter Care Teams Power Operator Relationship Specialty Start Date End Date Jerica Joseph DO PCP - General 06/19/17 07/09/17 Massiel Martinez MD [address] [address] PCP - General 07/10/17 07/10/17 Madhu Dean MD [address] [place] [address] [place] [address] PCP - General Internal Medicine 08/21/24 documented as of this encounter
--- OUTSIDE RECORDS SUMMARY | 2024-09-12 14:21 | XMS_ITS | Clinical Summary ---
Author Organization [facility] Address [address] [place] [address] Care Team Providers Care Manager Case Name Role Phone Massiel Martinez MD Primary Care Provider [phone] Source Comments [facility],non-owned Affiliates and Associated Physician Practices is amultiple site organization consisting of ambulatory clinics and hospital sitesin [place], [place], [place] and [place]. This disclosure is being madepursuant to the Care Everywhere program and may not contain all information available regarding this patient. Last updated 18.[facility] Allergies Active Allergy Reactions Criticality Noted Date [...] on file Legal Sex Male 6:05 AM COIL CLEANER Gender Identity Not on file Sexual Orientation Not on file Last Filed Vital Signs Vital Sign Reading Time Taken Comments Blood Pressure 131/93 03/22/2024 8:06 AM COIL CLEANER Pulse 95 03/22/2024 8:06 AM COIL CLEANER Temperature 37.1 C (98.7 F) 03/22/2024 5:25 AM COIL CLEANER Respiratory Rate 22 03/22/2024 8:06 AM COIL CLEANER Oxygen Saturation 99% 03/22/2024 5:25 AM COIL CLEANER Inhaled Oxygen Concentration - - Weight 99.8 kg (220 lb) 03/22/2024 5:25 AM COIL CLEANER Height 177.8 cm (5' 10 ) 03/22/2024 5:25 AM COIL CLEANER Body Mass Index 31.57 03/22/2024 5:25 AM COIL CLEANER Plan of Treatment Health Maintenance Due Date [...] patient's age to complete this topic Insurance [facility] Advance Directives * Full Code (Latest Code Status on File) Date Activated Date Inactivated Comments 02/22/2021 11:38 PM 02/24/2021 8:35 PM * Full Code Date Activated Date Inactivated Comments 10/14/2020 5:20 AM 10/18/2020 9:03 PM * Full Code Date Activated Date Inactivated Comments 05/17/2018 3:15 AM 05/21/2018 6:04 PM Care Teams Manager Case Relationship Specialty Start Date End Date Massiel Martinez MD PCP - General Pediatrics 08/09/18
--- OUTSIDE RECORDS SUMMARY | 2024-09-12 14:21 | XMS_ITS | Referral Summary ---
Author Organization [facility] Address [address] [place] [address] Care Team Providers Care Captain Cannery Tender Name Role Phone Madhu Dean MD Primary Care Provider [phone] Encounters Date Type Department Care Team Description 08/21/2024 3:31 AM CDT - 08/21/2024 7:56 AM CDT Emergency [facility] Emergency Department [address] [place] [address] Luis Armando Greco MD Chest pain, unspecified [...] on file Legal Sex Male 7:16 PM RATTLING MACHINE TENDER Gender Identity Male 07/01/2020 7:06 AM RATTLING MACHINE TENDER Sexual Orientation Not on file Last Filed [...] Tonia Sullivan M.D. SN: SN Report ID: [id number] Reading Location: [id number] Procedure Note Tonia Sullivan MD - 08/21/2024 [...] Tonia Sullivan M.D. SN: SN Report ID: [id number] Reading Location: [id number] us Luis Armando Greco MD IMG XR [...] BLOOD ORDERABLE S Final Result [facility] [address] [facility] Department [place] [address] * Differential, auto (08/21/2024 1:58 AM CDT) Neutrophil abs 4.38 1.50 - 6.50 K/cumm Imm gran abs 0.02 0.00 - 0.10 K/cumm [facility] ([place]) Lymphocyte abs 2.27 0.80 - 3.30 K/cumm [...] S Final Result [facility] ([place]) 1 [facility] [place] [address] * CBC with auto differential (08/21/2024 1:58 AM CDT) WBC 7.62 3.80 - 9.90 K/cumm Hgb 15.2 13.0 - 17.5 g/dL [facility] ([place]) Hct 44.2 38.9 - 50.3 % [facility] ([place]) Plt 219 150 - 400 K/cumm [facility] [...] NRBC abs 0.00 0.00 - 0.01 K/cumm [facility] Blood Venous blood specimen / Unknown 08/21/2024 1:58 AM CDT 08/21/2024 2:04 AM CDT us Luis Armando Greco MD LAB BLOOD ORDERABLE S Final Result [facility] ([place] 1 [facility] Department [place] [address] * Comprehensive metabolic panel (08/21/2024 1:58 AM CDT) Pathologist [facility] Sodium 139 135 - 145 mmol/L Potassium, [...] 100 70 - 199 mg/dL [facility] ([place]) Comment: Interpretive Data Fasting glucose >/= 126 [...] S Final Result [facility] ([place]) 1 [facility] Department [place] [address] * ECG 12 lead (08/21/2024 1:50 AM CDT) 08/21/2024 1:50 AM CDT Narrative [facility] - 08/21/2024 2:05 PM CDT Vent Rate: 79 bpm RR Interval: 754 msec NE Interval: 166 msec QRS Duration: 103 msec QT Interval: 360 msec QTC Interval: 395 msec P-R-T Lee: 67 - 24 - 47 degrees IMPRESSION: SINUS RHYTHM NONSPECIFIC IVCD NORMAL ECG Electronically Signed By: Frank Castrejon MD us Luis Armando Greco MD ECG ORDERABLES Fin al Result [facility] from Last 3 Months Insurance [facility] [facility] CHOICE PLUS [facility] PLUS [facility] Care Teams Captain Cannery Tender Relationship Specialty Start Date End Date Madhu Dean MD [address] [place] [address] [place] [address] [phone] (work) PCP - General Internal Medicine 08/21/24
--- OUTSIDE RECORDS SUMMARY | 2024-09-12 14:21 | XMS_ITS | Clinical Summary ---
Author Organization [facility] Address [address] [place] [address] Care Team Providers Care Bank Operations Officer Name Role Phone Madhu Dean MD Primary Care Provider [phone] Allergies Active Allergy Reactions Criticality Noted Date [...] CDT - 08/21/2024 7:56 AM CDT Emergency [facility] Emergency Department [address] [place] [address] Luis Armando Greco MD Chest pain, unspecified [...] on file Legal Sex Male 7:16 PM BROADCAST OPERATIONS TECHNICIAN Gender Identity Male 07/01/2020 7:06 AM BROADCAST OPERATIONS TECHNICIAN Sexual Orientation Not on file Obstetrics History [...] Tonia Sullivan M.D. SN: SN Report ID: [id number] Reading Location: [id number] Procedure Note Tonia Sullivan MD - 08/21/2024 [...] by Tonia Sullivan M.D. SN: Report ID: [id number] Reading Location: [id number] us Luis Armando Greco MD IMG XR [...] BLOOD ORDERABLE S Final Result [facility] ([place]) 1 [facility] Department [place] [address] * Differential, auto (08/21/2024 1:58 AM CDT) Neutrophil abs 4.38 1.50 - 6.50 K/cumm Imm gran abs 0.02 0.00 - 0.10 K/cumm [facility] ([place]) Lymphocyte abs 2.27 0.80 - 3.30 K/cumm [facility] ([place]) Monocyte abs 0.70 0.20 - 0.80 K/cumm [...] S Final Result [facility] ([place]) 1 [facility] Department [place] [address] * CBC with auto differential (08/21/2024 1:58 AM CDT) WBC 7.62 3.80 - 9.90 K/cumm Hgb 15.2 13.0 - 17.5 g/dL [facility] ([place]) Hct 44.2 38.9 - 50.3 % [facility] ([place]) Plt 219 150 - 400 K/cumm [facility] ([place]) MPV 10.3 9.1 - 12.3 fL [facility] ([place]) RBC 5.34 4.30 - 5.80 M/cumm [facility] ([place]) MCV 82.8 81.3 - 96.4 fL [facility] ([place]) MCH 28.5 27.1 - 33.3 pg [facility] ([place]) MCHC 34.4 32.3 - 35.7 g/dL [facility] ([place]) RDW CV 12.5 11.1 - 14.9 % [facility] ([place]) RDW SD 37.5 35.7 - 48.1 fL [facility] ([place]) NRBC abs 0.00 0.00 - 0.01 K/cumm [facility] ([place]) Blood Venous blood specimen / Unknown 08/21/2024 1:58 AM CDT 08/21/2024 2:04 AM CDT us Luis Armando Greco MD LAB BLOOD ORDERABLE S Final Result [facility] ([place] 1 [facility] Department [place] [address] * Comprehensive metabolic panel (08/21/2024 1:58 AM CDT) Sodium 139 135 - 145 mmol/L Potassium, pl 3.9 3.3 - 4.9 mmol/L [facility] ([place]) Chloride 104 97 - 110 mmol/L [facility] CO2 23 22 - 32 mmol/L [facility] ([place]) Anion gap 12 2 - 15 mmol/L [facility] ([place]) BUN 14 6 - 25 mg/dL [facility]) Creatinine 1.25 0.80 - 1.30 mg/dL [facility]) Glucose 100 70 - 199 mg/dL [facility] ([place]) Comment: Interpretive Data Fasting glucose [...] ORDERABLE S Final Result Performing Organization Address City/[facility] Co de Phone Number [facility] ([place]) [address] [place] [address] Department [place] [address] * ECG 12 lead (08/21/2024 1:50 AM CDT) 08/21/2024 1:50 AM CDT Narrative [facility] - 08/21/2024 2:05 PM CDT Vent Rate: 79 bpm RR Interval: 754 msec ND Interval: 166 msec QRS Duration: 103 msec QT Interval: 360 msec QTC Interval: 395 msec P-R-T [place]: 67 - 24 - 47 degrees IMPRESSION: SINUS RHYTHM NONSPECIFIC IVCD NORMAL ECG Electronically Signed By: Frank Castrejon MD us Luis Armando Greco MD ECG ORDERABLES Fin al Result Performing Organization Address City/[facility] Co de Phone Number [facility] [facility] from Last 3 Months Insurance [facility] HEALTH PLAN [facility] CHOICE PLUS CHOICE PLUS Member Subscriber Plan / Payer (Ef fective 2021-Present) Name:Wesley Fang Fab Relation to Subscriber:Child Name:HECTOR FANG Date of :1982 Address: [address] [place] [address] Payer ID:[id number] (NAIC) Type:[facility] HMO/PPO Address: [address] STATE HEALTH PLAN [employer] [employer] [facility] CHOICE PLUS [employer] Member Subscriber Plan / Payer (Ef fective 2011-Present) Name:Wesley Fang Relation to Subscriber:Self Name:LeoncioSiomaraWesley Fab Payer ID:[id number] (NAIC) Group ID:Not on file Type:HOME STATE Address: [address] [place] [phone] [employer] Care Teams Bank Operations Officer Relationship Specialty Start Date End Date Madhu Dean MD [address] [place] [address] PCP - General Internal Medicine 08/21/24
--- OUTSIDE RECORDS SUMMARY | 2024-09-12 14:21 | XMS_ITS | CONTINUITY OF CARE DOCUMENT ---
Author Name oanh hugo Address Unknown Organization [facility] Address [address] [address] [place] [address] Phone [phone] Care Team Providers Care Programmer Developer Name Role Phone Venkata HERNANDES, Lea Unavailable SHAYY AWNING ERECTOR, FRANCOISE Unavailable SHAYY AWNING ERECTOR, FRANCOISE Unavailable [phone] PROBLEMS Condition Status Date Provider Notes Cardiology examination active Lea patel MD Chest pain active Lea Hastings MD Palpitations active Lea Hastings MD Insomnia active Lea Hastings MD Anxiety/ depression active Lea Cardenas Headaches active Lea Hastings MD Fatigue active Lea Hastings MD ENCOUNTERS Date Type Provider Location Encounter Diag nosis - In-person encounter Office Visit Lea Hastings MD [place] [facility] Cardiology examinationChest painPalpitationsInsomniaAnxiety/ depressionHeadachesFatigue VITAL SIGNS Date Observation Value Provider Body Mass Index (Ratio) 27.25 kg/m2 Mini Lozano blood pressure, diastolic 62 mm[Hg] Wilma nkLogic blood pressure, systolic 127 mm[Hg] Rosalia kLogic blood pressure, resting No Liam titsakina Rosibel blood pressure, diastolic 62 mm[Hg] Tanmay Gleason blood pressure, systolic 127 mm[Hg] Venecia Gleason oxygen saturation, oximetry 98 % [facility] 91 /min [facility] Rosibel weight E&M 174 [lb_av] [facility] E&M 67 [in_i] [facility] respiratory rate E&M 20 /min Griselda Gleason [...] of years as a smoker 6 a [facility] use yes [facility] smoking status Former smoker Megan Platt jero INSURANCE PROVIDERS Payer name Policy type / Coverage type [place] red republican ID [id number] [employer] insurance [employer] 000 [id number] ADVANCE DIRECTIVES Name Date DISCUSSED - NO DECISION MADE TREATMENT PLAN Date Name Performer [id number],C, S truggles to sleep at night, frequently wakes up, and is tired during the day. Will scheduel him a home sleep study Dayan Marta [id number],C, P t complaining of intermittent chest pain, exacerbated by exercise. Associated with palpitations and fast heart rate. We will check a one week telemonitor to assess for arrhythmias. Had echo done last year which was unremarkable, so we will not repeat one at this time. Dayan Lozano [id number],C, S truggles to sleep at night, frequently wakes up, and is tired during the day. Will scheduel him a home sleep study Dayan Lozano [id number],C, F noah with psychiatrist. Has had episodes of suicidal ideation in the past. On medications Dayan Guerinwinnie [id number],C, F noah with psychiatrist. Has had episodes of suicidal ideation in the past. Lea Hastings MD Cardiology: S truggles to sleep at night, frequently wakes up, and is tired during the day. Will scheduel him a home sleep study [facility]: P t complaining of intermittent chest [...]
--- NOTE | 2024-09-12 14:38 | PC.NURSE ---
Pt seen ambulating with steady gait into ER waiting room. Pt currently sitting and resting in ER waiting room.
== END 2024-09-12 15:04 | disposition left against medical advice (07) ==
DX: R51.9 Headache, unspecified (principal)
CPT/HCPCS: 99199

== ENCOUNTER 2024-11-21 17:41 | Emergency (ER) | payer OTHER, MEDICAID, SELFPAY ==
--- NOTE | ~2024-11-21 | XR_ITS ---
EXAM: XR finger 5th LT min 2V DATE: 11/21/2024 18:38 HISTORY: traumatic injury to pinky finger . COMPARISON: None available. FINDINGS: Normal mineralization. Anterior bowing of the fifth metacarpal, without identification of a fracture line, probably representing chronic change. No acute fracture or dislocation. No lytic or blastic lesion. Joint spaces are maintained. No erosion or periosteal change. Soft tissue swelling ov er the left fifth MCP joint and proximal left finger. Multiple radiopaque foreign bodies present in t he soft tissues over the proximal and mid left fifth proximal phalanx. IMPRESSION: No acute osseous finding in the left fifth digit. Soft tissue swelling over the MCP joint and proximal finger with multifocal soft tissue debris. Presumed chronic anterior bowing of the left fifth metacarpal, likely from old healed boxer's type fracture. Reviewed, dictated and finalized at location K. IMPRESSION: No acute osseous finding in the left fifth digit. Soft tissue swell ing over the MCP joint and proximal finger with multifocal soft tissue debris. Presumed chronic anterior bowing of the left fifth metacarpal, likely from old healed boxer's type fracture.
--- OUTSIDE RECORDS SUMMARY | 2024-11-21 17:42 | XMS_ITS | Clinical Summary ---
Author Organization [facility] Address [address] [place] [address] Phone Care Team Providers Care Soda Flaker Name Role Phone Provider, Not On File Primary Care Provider Unav ailable Allergies No known active allergies Medications ondansetron (ZOFRAN) 4 MG Tablet Take 1-2 Tablets by mouth every 8 hours as needed for Nausea - 1st line. 10 Tablet 08/05/2024 Active Social History Tobacco Use Types Packs/Day Years [...] 8:47 AM CDT Height 175.3 cm (5' 9) 08/05/2024 8:47 AM CDT Body Mass Index 32.34 08/05/2024 8:47 AM CDT Plan of Treatment Health Maintenance Due Date Last Done Comments Hepatitis C Virus (HCV) Screening 2004 Meningococcal B Immunization (1 of 2 - Standard) 2020 SARS-COV-2 Immunization ( season) 2024 Influenza Immunization (#1) 01/05/202502/05, 01/20/2016, 04/06/2015, Additional history exists Respiratory Syncytial [...] patient's age to complete this topic Insurance Care Teams Soda Flaker Relationship Specialty Start Date End Date Provider, Not On File [place] PCP - General 08/05/24
--- OUTSIDE RECORDS SUMMARY | 2024-11-21 17:43 | XMS_ITS ---
Author Organization [facility] Address [address] [place] [address] Care Team Providers Care Equine Breeder Name Role Phone Marco Pelayo Primary Care Provider Starr Aranda Unavailable [phone] Annel Dumont Unavailable REASON FOR VISIT therapy out of [place], client can not make an appt due to his insurance Social History Sex Assigned At : Social History Observation Description Sex Assigned At Male Encounters Encounter Location Date Provider Diagnosis [address] [address] 10/27/2024 Annel Dumont Plan Of Treatment No Information Progress Notes * LEONCIO SiomaraAnuragOB:2005 (19 yo M)Acc No.[id number]:10/27/2024 UNLOCKED PROGRESS NOTE Patient: Wesley STRICKLAND Provider: Myra Dumont :2005 A ge:19 Y S ex:Male Date:10/27/2024 Address:[address] [place], [place] [id number] Pcp:Marco Pelayo Subjective: * Chief Complaints: * 1 . therapy out of [place], client can not make an appt due to his insurance. * Medical History: Objective: * Vitals: Assessment: Plan: * Treatment: * * Electronic signature of Marcos Dumont on 11/21/2024 at 05:43 PM CDT Sign off status: Pending * Provider: Myra Dumont Date: 0 10/27/2024 Generated for Kaycee perez/Ratna/Selene on: 0 11/21/2024 05:43 PM CDT
--- OUTSIDE RECORDS SUMMARY | 2024-11-21 17:43 | XMS_ITS | Encounter Summary ---
Author Organization [facility] Address [address] [place] [address] Phone Care Team Providers Care Cloud Engineer Name Role Phone Jerica Joseph DO Primary Care Provider + Massiel Martinez MD Primary Care Provider [phone] Madhu Dean MD Primary Care Provider [phone] Encounter Details Date Type Department Care Team (Late st Contact Info) Description 06/19/2017 Orders Only [facility] ProviderRolo MD [address] [place] [id number] Social History Tobacco Use Types Packs/Day Years Used Date Smoking Tobacco: Never Assessed Sex and Gender Information Value Date Recorded Sex Assigned at Not on file Legal Sex Male 7:16 PM CARDIAC/VASCULAR SONOGRAPHER Gender Identity Male 07/01/2020 7:06 AM CARDIAC/VASCULAR SONOGRAPHER Sexual Orientation Not on file documented as of this encounter Plan of Treatment Not on file documented as of this encounter Procedures Procedure Name Priority Date/Time Associated Diagnosis Comments DISCHARGE LABORATORY CUMULATIVE REPORT 06/19/2017 12:00 AM CARDIAC/VASCULAR SONOGRAPHER documented in this encounter Results * DISCHARGE LABORATORY CUMULATIVE REPORT (06/19/2017 12:00 AM CARDIAC/VASCULAR SONOGRAPHER) Narrative 06/19/2017 12:00 AM CARDIAC/VASCULAR SONOGRAPHER Ordered by an unspecified provider. Historical Provider LAB BLOOD ORDERABLES Bridget l Result documented in this encounter Visit Diagnoses Not on filedocumented in this encounter Additional Health Concerns Infection Onset Date Last Indicated Resolved Time COVID: Suspected 07/01/2021 07/01/2021 07/01/2021 6:32 PM CARDIAC/VASCULAR SONOGRAPHER documented as of this encounter Care Teams Cloud Engineer Relationship Specialty Start Date End Date eJrica Joseph DO PCP - General 06/19/17 07/09/17 Massiel Martinez MD [address] [address] PCP - General 07/10/17 07/10/17 Madhu Dean MD [address] [place] [address] [place] [address] PCP - General Internal Medicine 08/21/24 documented as of this encounter
--- OUTSIDE RECORDS SUMMARY | 2024-11-21 17:43 | XMS_ITS | Clinical Summary ---
Author Organization [facility] Address [address] [place] [address] Care Team Providers Care Knife Cutter Name Role Phone Massiel Martinez MD Primary Care Provider [phone] Source Comments [facility],non-owned Affiliates and Associated Physician Practices is amultiple site organization consisting of ambulatory clinics and hospital sitesin [place], [place], [place] and [place]. This disclosure is being madepursuant to the Care Everywhere program and may not contain all information available regarding this patient. Last updated 18.[facility] Allergies Active Allergy Reactions Criticality Noted Date [...] on file Legal Sex Male 6:05 AM MANAGER VAN Gender Identity Not on file Sexual Orientation Not on file Last Filed Vital Signs Vital Sign Reading Time Taken Comments Blood Pressure 131/93 03/22/2024 8:06 AM MANAGER VAN Pulse 95 03/22/2024 8:06 AM MANAGER VAN Temperature 37.1 C (98.7 F) 03/22/2024 5:25 AM MANAGER VAN Respiratory Rate 22 03/22/2024 8:06 AM MANAGER VAN Oxygen Saturation 99% 03/22/2024 5:25 AM MANAGER VAN Inhaled Oxygen Concentration - - Weight 99.8 kg (220 lb) 03/22/2024 5:25 AM MANAGER VAN Height 177.8 cm (5' 10) 03/22/2024 5:25 AM MANAGER VAN Body Mass Index 31.57 03/22/2024 5:25 AM MANAGER VAN Plan of Treatment Health Maintenance Due Date [...] 09/06/2020, 08/16/2020 DEPRESSION SCREENING 05/07/2024 INFLUENZA VACCINE (#1) 2025 , 02/06/2018, 01/24/2017 ZOSTER VACCINE (1 of 2) 2054 HIB VACCINE Aged Out No longer eligi ble based on patient's age to complete this topic MENINGOCOCCAL GROUPS A/C/Y/W VACCINE Aged Out No longer eligible b ased on patient's age to complete this topic PNEUMOCOCCAL VACCINE Aged Out No long er eligible based on patient's age to complete this topic Insurance [facility] [place] [address] [facility] Address: [address] [place] [address] [facility] Advance Directives * Full Code (Latest Code Status on File) Date Activated Date Inactivated Comments 02/22/2021 11:38 PM 02/24/2021 8:35 PM * Full Code Date Activated Date Inactivated Comments 10/14/2020 5:20 AM 10/18/2020 9:03 PM * Full Code Date Activated Date Inactivated Comments 05/17/2018 3:15 AM 05/21/2018 6:04 PM Care Teams Knife Cutter Relationship Specialty Start Date End Date Massiel Martinez MD PCP - General Pediatrics 08/09/18
--- OUTSIDE RECORDS SUMMARY | 2024-11-21 17:43 | XMS_ITS ---
Author Organization [facility] Address [address] [place] [address] Care Team Providers Care Pe Teacher Name Role Phone Marco Pelayo Primary Care Provider Starr Aranda Unavailable [phone] Varsha Senior Unavailable [phone] REASON FOR VISIT transfer from - 4 week follow up Medications Medication SIG (Take, Route, Frequency, Duration) Notes Start Date End Date Status PROzac 20 MG 1 capsule Orally Onc e a day in am; Duration: 30 days Active Abilify 10 MG 1 tablet Orally at n ight; Duration: 30 days Active Wellbutrin 100 MG 1 tablet Orally Twic e a day; Duration: 30 days 10/07/2024 Active Baclofen 10 MG 1 tablet as needed Orally Twice a day; Duration: 30 days As needed MUSCLE PAIN 08/27/2024 Active Pantoprazole Sodium 40 MG 1 tablet 1/2 t o 1 hour before morning meal Orally Once a day; Duration: 90 days Active hydrOXYzine HCl 10 MG 1 tablet Orally th ree times daily as needed for anxiety; Duration: 30 days Activ e Social History Sex Assigned At : Social History Observation Description Sex Assigned At Male Encounters Encounter Location Date Provider Diagnosis [place] [address] [address] [place] [address] 11/12/2024 Varsha Senior Bipolar affective disorder, currently depressed, moderate F31.32 Assessments Encounter Date Diagnosis (ICD Code) Assessment Notes Treatment Notes Treatment Clinical Notes Section Notes 11/12/2024 Bipolar affective disorder, currently depressed, moderate (ICD-10 - F31.32) Plan Of Treatment No Information Progress Notes * Ross FANGonDOB:2005 (19 yo M)Acc No.[id number]:11/12/2024 UNLOCKED PROGRESS NOTE Patient: Wesley STRICKLAND Provider: Naman Senior DNP, ANASTACIO, OUTSIDE MACHINIST SUPERVISOR :2005 A ge:19 Y S ex:Male Date:11/12/2024 Address:[address] [place], [place] [id number] Pcp:Marco Pelayo Subjective: * Chief Complaints: * 1 . transfer from - 4 week follow up. * Medical History: * Medications: T aking hydrOXYzine HCl 10 MG Tablet 1 tablet Orally three times daily as needed for anxiety , Taking PROzac 20 MG Capsule 1 capsule Orally Once a day in am , Taking Abilify 10 MG Tablet 1 tablet Orally at night , Taking Wellbutrin 100 MG Tablet 1 tablet Orally Twice a day , Taking Baclofen 10 MG Tablet 1 tablet as needed Orally Twice a day As needed MUSCLE PAIN, Taking Pantoprazole Sodium 40 MG Tablet Delayed Release 1 tablet 1/2 to 1 hour before morning meal Orally Once a day Objective: * Vitals: Assessment: * Assessment: 1. B ipolar affective disorder, currently depressed, moderate - F31.32 (Primary) ? Plan: * Treatment: * * Electronic signature of Renetta Senior on 11/21/2024 at 05:43 PM CDT Sign off status: Pending * Provider: Naman Senior DNP, ANASTACIO, OUTSIDE MACHINIST SUPERVISOR Date: 11/12/2024 Generated for Printing/Faxing/eTransmitting on: 11/21/2024 05:43 PM CDT
--- OUTSIDE RECORDS SUMMARY | 2024-11-21 17:43 | XMS_ITS | Referral Summary ---
Author Organization [facility] Address [address] [place] [address] Care Team Providers Care Grease Rack Worker Name Role Phone Madhu Dean MD Primary Care Provider [phone] Allergies Active Allergy Reactions Criticality Noted Date [...] for pain Take with food. 20 tablet 3 Active albuterol HFA (PROVENTIL HFA,VENTOLIN HFA,PROAIR HFA) 90 mcg/actuation inhaler Inhale 2 puffs every 4 (four) hours as needed for shortness of breath or wheezing 1 each 5 08/22/19 26 Active Active Problems Problem Noted Date Diagnosed Date [...] on file Legal Sex Male 7:16 PM OIL DISTRIBUTOR Gender Identity Male 07/01/2020 7:06 AM OIL DISTRIBUTOR Sexual Orientation Not on file Last Filed [...] 1:38 AM CDT Height 172.7 cm (5' 8) 08/21/2024 1:38 AM CDT Body Mass Index 33.45 08/21/2024 1:38 AM CDT Plan of Treatment Not on file Insurance [facility] CHOICE PLUS [employer] [facility] CHOICE PLUS [employer] [facility] [employer] [employer] [facility] Care Teams Grease Rack Worker Relationship Specialty Start Date End Date Madhu Dean MD [address] [facility] [place] [address] PCP - General Internal Medicine 08/21/24
--- OUTSIDE RECORDS SUMMARY | 2024-11-21 17:43 | XMS_ITS | Continuity of Care Document ---
Author Organization [facility] Address [address] [place] [address] Phone Care Team Providers Care Weaver [employer] Name Role Phone Stanley OD, Drew Unavailable Unavailable Procedures Procedure Date Eye Exam, New Patient Refraction Advance Directives Directive Yes / No Effective Date File Name No Information Encounters Encounter Description Practice Location Reason(s) For Visit Diagnoses Date Provider Providers Copied on Encounter [facility], [address], [place], [place], [id number], [place] tel:[phone] [address] [facility] No Information 7-201 0 Stanley OD Drew. [address] , [address], [place], [address], [place]. tel:[phone] Family History Family Member Type Diagnosis Age At Onset No Information Payers Payer name Insurance type Covered constitution party ID Authoriza tiryan(s) Medicaid [facility] [id number] Social History Type Description Quantity Date Captured Comments Sex Male Smoking Status No Information Chief Complaint And Reason For Visit No Information Reason For Referral Reason For Referral No Information History Of Present Illness Encounter Date Complaint History Of Prese nt Illness No Information Functional Status Date Functional Assessmen t No Information Instructions Date Instruction Additional Infor mation No Information Assessments Type Assessment Date No Information Patient Care Teams Name Effective Dates (start - stop) Status Members No Information
--- OUTSIDE RECORDS SUMMARY | 2024-11-21 17:43 | XMS_ITS | Patient Health Record ---
Author Organization [facility] Address [address] [place] [address] Care Team Providers Care Curer Acid Drum Name Role Phone Marco Pelayo Primary Care Provider [phone] Starr Aranda Unavailable [phone] Madhu Dean Unavailable [phone] Varsha Senior Unavailable [phone] Annel Dumont Unavailable Allergies Allergen (clinical drug ingredient) Drug/Non Drug Allergy documented on EMR Reaction Allergy Type Onset Date Status cephalexin Cephalexin (uncoded) Unknown Allergy Active Results Component Value Reference Range Notes Electrocardiogram (EKG), IH Reviewed date:10/22/2024 11:32:47 AM Interpretation: Performing Lab: Notes/Report: Herpes Simplex Virus Types 1 and 2 -specific Antibodies, IgG Reviewed date:07/23/2024 11:05:06 AM Interpretation: Performing Lab:[facility], [address] [facility], Phone - [phone], Director - [facility] Notes/Report: HSV 1 IgG, Type Spec Non Reactive Non Reactive Please note reference interval change HSV-1 IgG testing performed using the [employer] HSV-1 IgG assay. HSV 2 IgG, Type Spec Non Reactive Non Reactive Please note reference interval change Current guidelines and recommendations do not recommend routine screening for HSV-2 in asymptomatic individuals, including those that are . The detection of HSV-2 IgG antibodies in a single sample indicates previous exposure to HSV-2 but does not give information as to the site of HSV infection or the timing of exposure. The predictive value of positive and negative results depends on the population's prevalence and the pretest likelihood of HSV-2. HSV-2 IgG testing performed using the [employer] HSV-2 IgG assay. Rapid Plasma Reagin (RPR) Te st With Reflex to Quantitative RPR and Confirmatory Treponema pallidum Antibodies Reviewed date:07/23/2024 11:05:12 AM Interpretation: Performing Lab:[facility], Phone - [phone], [facility] Notes/Report: RPR Non Reactive Non Reactive Hepatitis C Virus Antibody w /Rflx to Quantitative Real-time PCR ([id number]) Reviewed date:07/23/2024 11:05:19 AM Interpretation: Performing Lab:[facility], Phone - [phone], [facility] Notes/Report: HCV Ab Non Reactive Non Reactive Interpretation: Not infected with HCV unless early or acute infection is suspected (which may be delayed in an immunocompromised individual), or other evidence exists to indicate HCV infection. Hepatitis B Surface Antigen (HBsAg Screen) Reviewed date:07/23/2024 11:04:56 AM Interpretation: Performing Lab:[employer] [address], Phone - [phone], [facility] Notes/Report: HBsAg Screen Negative Negative HIV Screen *HIV 1, 2 Ab, p24 Ag (360310) Reviewed date:07/23/2024 11:04:49 AM Interpretation: Performing Lab:[facility] [address], Phone - [phone], [facility] Notes/Report: HIV Ab/p24 Ag Screen Non Reactive Non Reactive HIV-1/HIV-2 antibodies and HIV-1 p24 antigen were NOT detected. There is no laboratory evidence of HIV infection. HIV Negative Chlamydia/Gonococcus/Mycopla sma genitalium, SOPHIA, Urine Reviewed date:07/23/2024 11:04:43 AM Interpretation: Performing Lab:[facility] [address], Phone - [phone], [facility] Notes/Report: Mycoplasma genitalium SOPHIA Negative Negative Chlamydia trachomatis, SOPHIA Negative Negative Neisseria gonorrhoeae, SOPHIA Negative Negative CMP 14 Comprehensive Metabol ic Panel* Reviewed date:07/23/2024 11:04:37 AM Interpretation: Performing Lab:[employer] [place] [address] [facility], Phone - [phone], Director - [facility] Notes/Report: Glucose 77 70-99 mg/dL BUN 20 6-20 mg/dL Creatinine 1.32 0.76-1.27 mg/dL eGFR 79 >59 mL/min/1.73 BUN/Creatinine Ratio 15 9-20 Sodium 139 134-144 mmol/L Potassium 4.9 3.5-5.2 mmol/L Chloride 106 96-106 mmol/L Carbon Dioxide, Total 20 20-29 mmol/L Calcium 9.6 8.7-10.2 mg/dL Protein, Total 7.7 6.0-8.5 g/dL Albumin 4.5 4.3-5.2 g/dL Globulin, Total 3.2 1.5-4.5 g/dL Bilirubin, Total 0.2 0.0-1.2 mg/dL Alkaline Phosphatase 62 51-125 IU/L AST (SGOT) 19 0-40 IU/L ALT (SGPT) 14 0-44 IU/L Iron and TIBC* Reviewed date:07/23/2024 11:04:31 AM Interpretation: Performing Lab:[employer] [place] [address] [place] [address], Phone - [phone], Director - [facility] Notes/Report: Iron Bind.Cap.(TIBC) 329 250-450 ug/dL UIBC 258 111-343 ug/dL Iron 71 38-169 ug/dL Iron Saturation 22 15-55 % CBC With Differential/Platel et* Reviewed date:07/23/2024 11:04:26 AM Interpretation: Performing Lab:[employer] [place], [address] [facility], Phone - [phone], [facility] Notes/Report: WBC 7.0 3.4-10.8 x10E3/uL RBC 5.66 4.14-5.80 x10E6/uL Hemoglobin 15.9 13.0-17.7 g/dL Hematocrit 48.0 37.5-51.0 % MCV 85 79-97 fL MCH 28.1 26.6-33.0 pg MCHC 33.1 31.5-35.7 g/dL RDW 13.0 11.6-15.4 % Platelets 242 150-450 x10E3/uL Neutrophils 60 Not Estab. % Lymphs 30 Not Estab. % Monocytes 7 Not Estab. % Eos 2 Not Estab. % Basos 1 Not Estab. % Neutrophils (Absolute) 4.2 1.4-7.0 x10E3/uL Lymphs (Absolute) 2.1 0.7-3.1 x10E3/uL Monocytes(Absolute) 0.5 0.1-0.9 x10E3/uL Eos (Absolute) 0.2 0.0-0.4 x10E3/uL Baso (Absolute) 0.0 0.0-0.2 x10E3/uL Immature Granulocytes 0 Not Estab. % Immature Grans (Abs) 0.0 0.0-0.1 x10E3/uL TSH Rfx on Abnormal to Free T4 Reviewed date:07/23/2024 11:04:20 AM Interpretation: Performing Lab:[facility] [place], [address] [facility], Phone - [phone], Director - Gela Notes/Report: TSH 0.537 0.450-4.500 uIU/mL Reason For Referral Reason ACNE VULGARIS, SCARR ING FROM CYSTIC ACNE TEEN Diagnosis 1 Acne vulgaris (L70.0 ) Referral Organization [facility] Referring Provider First Name Madhu Referring Provider Last Name Dean Referring Provider Speciality Internal M edicine Referred Provider Specialty Dermatology General Notes Marina Bennett 09:48:22 AM >Talked with [facility] & they take multiple [facility] plans. Faxed referral & they will call back to verify if they take clients insurance.Donald Melanie D 07/31/2024 02:35:17 PM >Referral letter & message sent to client.Donald Melanie D 10/28/2024 09:36:55 AM >Automated message sent to client about outstanding referral.Donald Melanie D 10/28/2024 11:01:13 AM >Talked with client who reported that he is no longer interested in going to a Log Sorting Supervisor. Closing referral. Clinical Notes [facility], [address] [place] [address], , Referral Priority Routine Reason EPWORTH SCORE 17 Diagnosis 1 Sleep apnea in adult (G47.33) Referral Organization [facility] Referring Provider First Name Madhu Referring Provider Last Name Dianne Referring Provider Speciality Internal edicine Referred Provider Specialty Sleep Medici ne General Notes Marina Bennett 09:30:46 AM >[facility] takes clients insurance., Marina Bennett 07/31/2024 09:35:15 AM >Referral faxed., Marina Bennett 07/31/2024 09:36:23 AM >Referral letter & message sent to client., Marina Bennett 10/28/2024 09:36:55 AM >Automated message sent to client about outstanding referral., Marina Bennett 10/28/2024 11:04:21 AM >Talked with client who has not completed this referral but still wants to have this done. Referral refaxed & client given referral information. Client aware to notify [facility] after appointment has been scheduled or if there are any barriers to scheduling. Clinical Notes [facility], [address] [place] [address], , Referral Priority Routine Reason NASAL SEPTAL DEVIATI ON AFFECTING HIS BREATHING Diagnosis 1 Nasal septal deviati on (J34.2) Referral Organization [facility] Referring Provider First Name Madhu Referring Provider Last Name Dianne Referring Provider Speciality Internal edicine Referred Provider Specialty Otolaryngolo gy General Notes Marina Bennett 09:58:21 AM >[facility] takes clients insurance., Marina Bennett 07/31/2024 02:31:55 PM >Referral Faxed., Marina Bennett 07/31/2024 02:32:11 PM >Referral Letter & message sent to client., Marina Bennett 10/28/2024 09:36:55 AM >Automated message sent to client about outstanding referral., Marina Bennett 10/28/2024 11:04:21 AM >Talked with client who has not completed this referral but still wants to have this done. Referral refaxed & client given referral information. Client aware to notify [facility] after appointment has been scheduled or if there are any barriers to scheduling. Clinical Notes [facility] [address] [facility], [place] [address], , Referral Priority Routine Medications Medication SIG (Take, Route, Frequency, Duration) Notes Start Date End Date Status hydrOXYzine HCl 10 MG 1 tablet Orally th ree times daily as needed for anxiety; Duration: 30 days Activ e PROzac 20 MG 1 capsule Orally Onc [...] Once a day; Duration: 90 days Active Social History Tobacco Use: Social History Observation Description Date Details (start date - stop date) Current Smoker NA - NA Sex Assigned At : Social History Observation Description Sex Assigned At Male PRAPARE Question Answer Notes Date Completed/Updated: 10/21/2024 What is your current housing situation? I have h ousing Are you worried about losing your housing? No What is the highest level of school that you have finished? Less than a high school degree What is your current work situation? Oth erwise unemployed but not seeking work (ex. 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 Check all that apply Medicine or any health care (medical, dental, mental health or vision) Has lack of transportation k ept you from medical appointments, meetings, work or from getting things needed for daily living? No How often do you see or talk to people that you care about and feel close to? (For example: talking to friends on the phone, visiting friends or family, going to yarsanism or club meetings) 3 to 5 times a week How stressed are you? Stress is when someone feels tense, nervous, anxious, or can\t sleep at night because their mind is troubled Somewhat In the past year have you sp ent more than 2 nights in a row in a longterm, correction, usp center, or juvenile correctional facility? No Are you a refugee? No What country are you from? [place] Do you feel physically and e motionally safe where you currently live? Yes In the past year, have you b een afraid of your partner or ex-partner? No PRAPARE Score: 7 Tobacco Control (Standard) Question Answer Notes Tobacco use: Current smoker How often do you smoke cigarettes? Every day Additional Findings: Tobacco user e-cigarette Problems Problem Type SNOMED Code ICD Code Onset Dates Problem Status W/U Status Risk Notes Problem Tobacco user (917611933) Nicotine dependence, unspecified, uncomplicated (F17.200) Active confirmed Problem Borderline personality disorder (80360183) Borderline personality disorder (F60.3) Active confirmed Problem Conduction disorder of the heart (96619692) Conduction disorder, unspecified (I45.9) Active confirmed Problem Gastroesophageal reflux disease (148725515) GERD (gastroesophagea l reflux disease) (K21.9) Active confirmed Problem Anxiety (29287597) Anxiety (F41.9) Active confi rmed Problem Sleep disorder (47779079) Sleep disorder (G47.9) Active confirmed Problem Disorder of psychological development (disorder) (037276715) Sensory processing difficulty (F88) Active confirmed Problem Obstructive sleep apnea syndrome (62537091) Sleep apnea in adult (G47.33) Active confirmed Problem Obese class I (finding) (454619557366764) Obesity (BMI 30.0-34.9) (E66.9) Active confirmed Problem Bipolar affective disorder, currently depressed, moderate (916543250) Bipolar affective disorder, currently depressed, moderate (F31.32) 03/08/20 22 Active confirmed Problem Irregular heart beat (917737622) Irregular heart beat (I49.9) Active confirmed Problem Acne scarring (L73.0) Active confirmed Vital Signs Heart Rate 86 /min 10/07/2024 Temperature 98.6 degrees Fahrenheit 07/08/2024 Respiratory Rate 16 /min 10/07/2024 Blood pressure diastolic 60 mm Hg 10/07/2024 Oximetry 97 % 10/07/2024 Height 69 in 10/07/2024 BMI Percentile 98.09 % 02/19/2024 Blood pressure systolic 110 mm Hg 10/07/2024 Weight 217 lbs 10/07/2024 BMI 32.04 kg/m2 10/07/2024 Encounters Encounter Location Date Provider Diagnosis [address] [address] 01/17/2024 Marco Pelayo Self-injurious behavior Z72.89 ; Closed wound of head, subsequent encounter S09.90XD ; Obesity (BMI 30.0-34.9) E66.9 ; Nutritional counseling Z71.3 and Nicotine dependence, unspecified, uncomplicated F17.[address] [address] 02/05/2024 Starr Aranda Body mass index (BMI) pediatric, greater than or equal to 95th percentile for age Z68.54 ; Bipolar affective disorder, currently depressed, moderate F31.32 ; Nutritional counseling Z71.3 ; Exercise counseling Z71.82 and Anxiety F41.[address] [address] 02/19/2024 Starr Aranda Body mass index (BMI) pediatric, greater than or equal to 95th percentile for age Z68.54 ; Bipolar affective disorder, currently depressed, moderate F31.32 ; Nutritional counseling Z71.3 ; Exercise counseling Z71.82 ; Anxiety F41.9 and Borderline personality disorder F60.[address] [address] 07/08/2024 Starr Aranda Body mass index (BMI) pediatric, greater than or equal to 95th percentile for age Z68.54 ; Bipolar affective disorder, currently depressed, moderate F31.32 ; Nutritional counseling Z71.3 ; Exercise counseling Z71.82 ; Anxiety F41.9 and Borderline personality disorder F60.[address] [address] 07/14/2024 Madhu Dean Sleep apnea in adult G47.33 ; GERD (gastroesophageal reflux disease) K21.9 ; Acne vulgaris L70.0 ; Conduction disorder, unspecified I45.9 ; Nasal septal deviation J34.2 ; Fatigue R53.83 and Exposure to potential infection Z20.[address] [address] 08/27/2024 Madhu Dean Muscle strain T14.8XXA and Chest wall pain R07.[address] [address] 10/07/2024 Starr Aranda Body mass index (BMI) pediatric, greater than or equal to 95th percentile for age Z68.54 ; Bipolar affective disorder, currently depressed, moderate F31.32 ; Nutritional counseling Z71.3 ; Exercise counseling Z71.82 ; Anxiety F41.9 ; Borderline personality disorder F60.3 and Medication management Z79.[address] [place] [address] 10/21/2024 Annel Dumont [address] [address] 10/28/2024 Annel Dumont [address] [address] 10/14/2024 Starr Aranda [facility] [address] [place] [address] 01/17/2024 Starr Aranda [facility] [address] [place] [address] 01/22/2024 Starr Aranda [address] [place] [address] 02/18/2024 Starr Aranda [address] [place] [address] 07/17/2024 Madhu Dean [address] [place] [address] 07/24/2024 Madhu Dean [address] [address] 10/06/2024 Starr Aranda [facility] [address] [place] [address] 10/08/2024 Starr Aranda Medication monitoring encounter Z51.81 [facility] [address] [place] [address] 10/21/2024 Starr Aranda [facility] [address] [place] [address] 11/04/2024 Starr Aranda Assessments Encounter Date Diagnosis (ICD Code) Assessment Notes Treatment Notes Treatment Clinical Notes Section Notes 07/14/2024 Sleep apnea in adult (ICD-10 - G47.33) 08/27/2024 Chest wall pain (ICD-10 - R07.89) 08/27/2024 Muscle strain (ICD-10 - T14.8XXA) HEAT, STRETCHES, AVOID RAPID MOVEMENETS AND HEAVY LIFTING. USE TYLENOL AND BACLOFEN PRN. 10/07/2024 Body mass index (BMI) pediatric, greater than or equal to 95th percentile for age (ICD-10 - Z68.54) 10/08/2024 Medication monitoring encounter (ICD-10 - Z51.81) 02/19/2024 Body mass index (BMI) pediatric, greater than or equal to 95th percentile for age (ICD-10 - Z68.54) 07/08/2024 Body mass index (BMI) pediatric, greater than or equal to 95th percentile for age (ICD-10 - Z68.54) 07/14/2024 GERD (gastroesophageal reflux disease) (ICD-10 - K21.9) DISCUSSED ANTIREFLUX DIET AND AVOIDING LYING DOWN WITHIN 3 HOURS OF EATING 01/17/2024 Self-injurious behavior (ICD-10 - Z72.89) Crisis Intervention team called, in room to speak with pt. Has f/u with psychiatric provider next week. 01/17/2024 Closed wound of head, subsequent encounter (ICD-10 - S09.90XD) 02/05/2024 Body mass index (BMI) pediatric, greater than or equal to 95th percentile for age (ICD-10 - Z68.54) 01/17/2024 Obesity (BMI 30.0-34.9) (ICD-10 - E66.9) 02/05/2024 Bipolar affective disorder, currently depressed, moderate (ICD-10 - F31.32) 07/08/2024 Bipolar affective disorder, currently depressed, moderate (ICD-10 - F31.32) 02/19/2024 Bipolar affective disorder, currently depressed, moderate (ICD-10 - F31.32) 10/07/2024 Bipolar affective disorder, currently depressed, moderate (ICD-10 - F31.32) 07/14/2024 Acne vulgaris (ICD-10 - L70.0) 10/07/2024 Nutritional counseling (ICD-10 - Z71.3) 02/19/2024 Nutritional counseling (ICD-10 - Z71.3) 02/05/2024 Nutritional counseling (ICD-10 - Z71.3) 07/08/2024 Nutritional counseling (ICD-10 - Z71.3) 07/14/2024 Conduction disorder, unspecified (ICD-10 - I45.9) 01/17/2024 Nutritional counseling (ICD-10 - Z71.3) 02/05/2024 Exercise counseling (ICD-10 - Z71.82) 01/17/2024 Nicotine dependence, unspecified, uncomplicated (ICD-10 - F17.200) 07/08/2024 Exercise counseling (ICD-10 - Z71.82) 02/19/2024 Exercise counseling (ICD-10 - Z71.82) 10/07/2024 Exercise counseling (ICD-10 - Z71.82) 07/14/2024 Nasal septal deviation (ICD-10 - J34.2) 10/07/2024 Anxiety (ICD-10 - F41.9) 02/19/2024 Anxiety (ICD-10 - F41.9) 07/08/2024 Anxiety (ICD-10 - F41.9) 02/05/2024 Anxiety (ICD-10 - F41.9) 07/14/2024 Fatigue (ICD-10 - R53.83) 02/19/2024 Borderline personality disorder (ICD-10 - F60.3) 07/08/2024 Borderline personality disorder (ICD-10 - F60.3) 10/07/2024 Borderline personality disorder (ICD-10 - F60.3) 07/14/2024 Exposure to potential infection (ICD-10 - Z20.9) 10/07/2024 Medication management (ICD-10 - Z79.899) 07/08/2024 Other Patient may self-administer their own medications or may self-administer their own oral medications per [facility] Protocol. 10/07/2024 Other Patient may self-administer their own medications or may self-administer their own oral medications per [facility] Protocol. 10/28/2024 Other Commissary Representative met with Wesley Fang to assist in working on building skills to help the consumer gain confidence in their independent living skills. The typewriter assembler practiced with Wesley Fang implementing problem solving skills (reaching out to HN and mental health providers) to help facilitate exploration of options related to medication management along with adding therapy. Client has completed the intake, but has not been able to schedule an appointment with a therapist based off of his insurance issues. The typewriter assembler encouraged and engaged in critical thinking of how to use natural resources and coping skills to help manage symptoms in the moment. Commissary Representative also worked on modeling and practicing with the consumer healthy coping skills to reduce stress and anxiety including exercise, journaling, and maintaining work and mental health balance. Plan Of Treatment Future Test Test Name Order Date Hemoglobin A1c* 10/08/2024 Lipid Panel* 10/08/2024 Insurance Providers Payer Name Payer Address Payer Phone Subscriber Number Group Number Insured Name Patient Relationship to Insured Coverage Start Date Coverage End Date [facility] [address] [place] [address] [id number] Wesley Fang Self - patient is the insured 2 Medical (General) History Medical History History ICD Code Establish care Swollen testicle Surgical History Surgery Date(Month/Year) [place] teeth removed Hospitalization History Reason Date(Month/Year) Mental health stays
--- OUTSIDE RECORDS SUMMARY | 2024-11-21 17:43 | XMS_ITS | Clinical Summary ---
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 [employer] Sexual Orientation Not on file Obstetrics History [...] topic HPV Vaccines Completed 05/30/2016, 01/05, 11/17/2015 Insurance [facility]PP[facility] Address: [address] [place] [address] [place] [id number]PPO Address: [address] [address] [place] [address] [employer] [employer] [facility]/PPO Address: [address] [address] [place] [address] [employer] Care Teams Box Maker Wood Relationship Specialty Start Date End Date Madhu Dean MD [address] [facility] [place] [address] PCP - General Internal Medicine 08/21/24
[2024-11-21 17:47] VITALS: BP 132/73; PULSE 80; RESP 18; TEMP 36.9; O2SAT 95
--- NOTE | 2024-11-21 18:12 | PCCCNOTE ---
Pt's nurse consulted Care Coordination for resources. Stated the pt reported if he did not receive resources when he left he would go home and stick a needle in his neck killing himself. At this time did direct the nurse to call Crisis for SI and intervention needs.-valentina
--- NOTE | 2024-11-21 18:13 | PC.NURSE ---
during initial interview patient stated that he really blames his mom for all of his problems that he's had since he's been 14, that if he didn't live with a fentanyl abusing alcoholic who makes him so angry that he has to punch things, when asked if he would like to hurt himself or others he showed this rn scars and cuts on his arms bilaterally. patient states that he has tried multiple ways to have resources using [facility] who he states did nothing for him. patient states that if he doesn't get any actual help today I'm going to walk out of here and kill myself states that he will shove a needle into my neck.
--- OUTSIDE RECORDS SUMMARY | 2024-11-21 18:34 | XMS_ITS | Continuity of Care Document ---
Author Organization [facility] Address [address] [place] [address] Phone Care Team Providers Care Transportation Aid Name Role Phone Stanley OD, Drew Unavailable Unavailable Procedures Procedure Date Eye Exam, New Patient Refraction Advance Directives Directive Yes / No Effective Date File Name No Information Encounters Encounter Description Practice Location Reason(s) For Visit Diagnoses Date Provider Providers Copied on Encounter [facility], [address], [place], [place], [id number], [place] tel:[phone] [facility] No Information 7-201 0 Stanley OD Drew. [address] [facility] , [address], [place], [address], [place]. tel:[phone] Family History Family Member Type Diagnosis Age At Onset No Information Payers Payer name Insurance type Covered alliance party ID Authoriza tiryan(s) Medicaid [facility] [id number] Social History Type Description Quantity Date Captured [...]
--- OUTSIDE RECORDS SUMMARY | 2024-11-21 18:34 | XMS_ITS | Clinical Summary ---
Author Organization [facility] Address [address] [place] [address] Phone Care Team Providers Care Die Maker Apprentice Name Role Phone Provider, Not On File [...] to complete this topic Insurance Care Teams Die Maker Apprentice Relationship Specialty Start Date End Date Provider, Not On File [place] PCP - General 08/05/24
--- OUTSIDE RECORDS SUMMARY | 2024-11-21 18:34 | XMS_ITS | Clinical Summary ---
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 Sexual Orientation Not on file Obstetrics [...] Completed 05/30/2016, 01/05, 11/17/2015 Insurance [facility]/PPO Address: [address] [place] [id number] [place] [id number] H[facility]/PPO Address: [address] [address] [place] [address] [facility] [employer] [facility] [employer]/PPO Address: [address] [address] [place] [address] [employer] Care Teams Wire Technician Relationship Specialty Start Date End Date Madhu Dean MD [address] [facility] [place] [address] PCP - General Internal Medicine 08/21/24
--- OUTSIDE RECORDS SUMMARY | 2024-11-21 18:34 | XMS_ITS | Encounter Summary ---
Author Organization [facility] Address [address] [place] [address] Phone Care Team Providers Care Carpentry Specialist Name Role Phone Jerica Joseph DO Primary Care Provider + Massiel Martinez MD Primary Care Provider Madhu Dean MD Primary Care Provider [phone] Encounter Details Date Type Department Care Team (Late st Contact Info) Description 06/19/[address] [facility] ProviderRolo MD [address] [place] [id number] Social History Tobacco Use Types Packs/Day Years Used Date Smoking Tobacco: Never Assessed Sex and Gender Information Value Date Recorded Sex Assigned at Not on file Legal Sex Male 7:16 PM CHIEF DIGITAL OFFICER Gender Identity Male 07/01/2020 7:06 AM CHIEF DIGITAL OFFICER Sexual Orientation Not on file documented as of this encounter Plan of Treatment Not on file documented as of this encounter Procedures Procedure Name Priority Date/Time Associated Diagnosis Comments DISCHARGE LABORATORY CUMULATIVE REPORT 06/19/2017 12:00 AM CHIEF DIGITAL OFFICER documented in this encounter Results * DISCHARGE LABORATORY CUMULATIVE REPORT (06/19/2017 12:00 AM CHIEF DIGITAL OFFICER) Narrative 06/19/2017 12:00 AM CHIEF DIGITAL OFFICER Ordered by an unspecified provider. Historical Provider LAB BLOOD ORDERABLES Bridget l Result documented in this encounter Visit Diagnoses Not on filedocumented in this encounter Additional Health Concerns Infection Onset Date Last Indicated Resolved Time COVID: Suspected 07/01/2021 07/01/2021 07/01/2021 6:32 PM CHIEF DIGITAL OFFICER documented as of this encounter Care Teams Carpentry Specialist Relationship Specialty Start Date End Date Jerica Joseph DO PCP - General 06/19/17 07/09/17 Massiel Martinez MD [address] [address] PCP - General 07/10/17 07/10/17 Madhu Dean MD [address] [place] [address] [place] [address] PCP - General Internal Medicine 08/21/24 documented as of this encounter
--- OUTSIDE RECORDS SUMMARY | 2024-11-21 18:34 | XMS_ITS | Referral Summary ---
Author Organization [facility] Address [address] [place] [address] Care Team Providers Care Director Service Name Role Phone Madhu Dean MD Primary Care Provider [phone] Allergies Active Allergy Reactions Criticality Noted Date [...] on file Legal Sex Male 7:16 PM INVENTORY SPECIALIST Gender Identity Male 07/01/2020 7:06 AM INVENTORY SPECIALIST Sexual Orientation Not on file Last Filed [...] Plan of Treatment Not on file Insurance [facility] Address: [address] [address] [place] [address] [place] [facility] H[facility]/PPO Address: [address] [address] [place] [address] [employer] [facility] H[facility]/PPO Address: [address] [address] [place] [address] [employer] Care Teams Director Service Relationship Specialty Start Date End Date Madhu Dean MD [address] [facility] [address] PCP - General Internal Medicine 08/21/24
--- OUTSIDE RECORDS SUMMARY | 2024-11-21 18:34 | XMS_ITS | Clinical Summary ---
Author Organization [facility] Address [address] [place] [address] Care Team Providers Care Medication Aid Name Role Phone Massiel Martinez MD Primary Care Provider [phone] Source Comments [facility],non-owned Affiliates and Associated Physician Practices is amultiple site organization consisting of ambulatory clinics and hospital sitesin [place], [place], [place] and [place]. This disclosure is being madepursuant to the Care Everywhere program and may not contain all information available regarding this patient. Last updated 18.[facility] Allergies Active Allergy Reactions Criticality Noted Date [...] on file Legal Sex Male 6:05 AM RAT EXTERMINATOR Gender Identity Not on file Sexual Orientation Not on file Last Filed Vital Signs Vital Sign Reading Time Taken Comments Blood Pressure 131/93 03/22/2024 8:06 AM RAT EXTERMINATOR Pulse 95 03/22/2024 8:06 AM RAT EXTERMINATOR Temperature 37.1 C (98.7 F) 03/22/2024 5:25 AM RAT EXTERMINATOR Respiratory Rate 22 03/22/2024 8:06 AM RAT EXTERMINATOR Oxygen Saturation 99% 03/22/2024 5:25 AM RAT EXTERMINATOR Inhaled Oxygen Concentration - - Weight 99.8 kg (220 lb) 03/22/2024 5:25 AM RAT EXTERMINATOR Height 177.8 cm (5' 10) 03/22/2024 5:25 AM RAT EXTERMINATOR Body Mass Index 31.57 03/22/2024 5:25 AM RAT EXTERMINATOR Plan of Treatment Health Maintenance Due Date [...] patient's age to complete this topic Insurance [facility] Advance Directives * Full Code (Latest Code Status on File) Date Activated Date Inactivated Comments 02/22/2021 11:38 PM 02/24/2021 8:35 PM * Full Code Date Activated Date Inactivated Comments 10/14/2020 5:20 AM 10/18/2020 9:03 PM * Full Code Date Activated Date Inactivated Comments 05/17/2018 3:15 AM 05/21/2018 6:04 PM Care Teams Medication Aid Relationship Specialty Start Date End Date Massiel Martinez MD PCP - General Pediatrics 08/09/18
--- NOTE | 2024-11-21 18:38 | PC.NURSE ---
Discussed with driver's license examiner the patients threats to leave here and kill himself if he did not get help with resources. charge manager states that there are no available sitters, patient being moved to a room next to nurses station.
--- NOTE | 2024-11-21 18:45 | PC.NURSE ---
patient moved to room 7 per furnace charger, patient report given to Evon LOTT.
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
[2024-11-21 19:24] LABS: Hematocrit 45.4 % (42.0-52.0); Hemoglobin 15.3 g/dL (14.0-18.0); Immature Granulocyte Percent A 0.2 % (0-0.5); Lymphocytes Absolute Auto 1.84 K/mm3 (0.9-3.2); Mean Corpuscular HGB Conc 33.7 g/dl (32-36); Mean Corpuscular Hemoglobin 27.7 pg (26-34); Mean Corpuscular Volume 82.2 fl (80-100); Nucleated Red Blood Cells Absolute Auto 0.000 K/mm3 (0.0-0.012); Nucleated Red Blood Cells Perc 0.0 % (0.0-0.2); Platelet Count Result 233 k/mm3 (150-375); Red Blood Count 5.52 M/mm3 (4.6-6.20); White Blood Count 8.9 K/mm3 (4.5-10.0)
[2024-11-21 19:41] LABS: Alanine Aminotransferase 21 U/L (6-50); Albumin Level 4.6 g/dL (3.5-5.1); Alkaline Phosphatase 63 U/L (38-126); Anion Gap 10 mmol/L (4-12); Aspartate Amino Transferase 29 U/L (17-59); Bilirubin,Total 0.4 mg/dL (0.2-1.3); Blood Urea Nitrogen 15 mg/dL (9-20); Calcium 9.4 mg/dL (8.4-10.2); Carbon Dioxide 22 mmol/L (22-30); Chloride 108 mmol/L (98-107); Estimated CRCL calculation 101 ml/min; Estimated Glomerular Filt Rate > 60; Glucose 91 mg/dL (65-110); Potassium 4.1 mmol/L (3.4-5.0); Sodium 140 mmol/L (137-145); Total Protein 8.5 g/dL (6.3-8.2)
[2024-11-21 20:00] LABS: Influenza A QL RT-PCR Negative (Negative); Influenza B QL RT-PCR Negative (Negative); RSV RNA, RT-PCR Negative (Negative); SARS-CoV-2 RNA PCR Negative (Negative)
[2024-11-21 20:07] LABS: Add Urine Microscopic? YES; Appearance Urine Clear (Clear); Glucose Urine UA Negative (Negative); Leukocyte Esterase Ur 2+ LEU/UL (Negative); Nitrate Urine Negative (Negative); Non Pathogenic Casts 0-2; Specific Grav Ur 1.027 (1.001-1.035)
[2024-11-21 20:12] LABS: Thyroid Stimulating Hormone 1.350 uIU/mL (0.465-4.680)
[2024-11-21 20:38] LABS: Salicylate < 1.0 mg/dL (2-20)
[2024-11-21 20:40] LABS: Acetaminophen < 10 ug/mL (10-30)
[2024-11-21] MEDS: IBUPROFEN 600 MG TABLET PO (21:42)
[2024-11-21] MEDS: ACETAMINOPHEN 500 MG TABLET 1000 MG PO (21:43)
[2024-11-21 21:56] LABS: Cannabinoid Screen Urine Positive (Negative)
== END 2024-11-21 22:53 | disposition home or self-care (01) ==
PROVIDERS: Emergency Provider Registered Nurse
DX: S61.217A Laceration without foreign body of left little finger without damage to nail, initial encounter (principal); R45.851 Suicidal ideations; Z91.51 Personal history of suicidal behavior; Z23 Encounter for immunization; Z11.52 Encounter for screening for COVID-19; W25.XXXA Contact with sharp glass, initial encounter
CPT/HCPCS: 12002; 36415; 73140; 80053; 80143; 80179; 80307; 81001; 82077; 84443; 85025; 87086; 87637; 99283; A9270; J2003